=== PATIENT | male | born 1965 | race Caucasian/White ===

== ENCOUNTER → 2023-06-25 09:59 | Outpatient (BNVA) | payer MEDICARE, SELFPAY | PROVIDERS: PCP Family Medicine; Visit Provider Family Medicine | DX: E34.9 Endocrine disorder, unspecified (principal); Z86.73 Personal history of transient ischemic attack (TIA), and cerebral infarction without residual deficits; R97.20 Elevated prostate specific antigen [PSA]; I63.9 Cerebral infarction, unspecified | CPT/HCPCS: 80053; 80061; 84153; 84403; 85025 ==

== ENCOUNTER 2023-12-28 20:00 | Outpatient (CLI) | payer MEDICARE, SELFPAY | END 2023-12-28 20:01 | disposition home or self-care (01) | LOC: SLEEP 23:18 | PROVIDERS: PCP Family Medicine; Visit Provider Family Medicine | DX: G47.33 Obstructive sleep apnea (adult) (pediatric) (principal) | CPT/HCPCS: 95811 ==

== ENCOUNTER → 2024-01-19 12:43 | Outpatient (BNVA) | payer SELFPAY | PROVIDERS: PCP Family Medicine; Visit Provider Family Medicine | DX: E34.9 Endocrine disorder, unspecified (principal) | CPT/HCPCS: 80053; 80061; 84403 ==

== ENCOUNTER 2024-03-19 08:40 | Emergency (ER) | payer MEDICARE, SELFPAY ==
[2024-03-19 09:03] VITALS: BP 138/81; PULSE 79; RESP 18; TEMP 36.7; O2SAT 95
--- NOTE | 2024-03-19 10:11 | W.ED.WOUNDLC ---
HPI - Wound/Laceration General: Chief Complaint: Wound/Laceration Stated Complaint: sliced finger open Time Seen by Provider: 03/19/24 08:44 History of Present Illness: 58-year-old male was feel dressing and deer and cut his right index finger across the pad of the finger distally. No other injuries unsure of his last tetanus shot. Related Data Home Medications Medication Instructions Recorded Confirmed omeprazole 40 mg capsule,delayed 40 mg PO DAILY 04/30/23 03/19/24 release acetaminophen 500 mg tablet 1,000 mg PO Q6H PRN Pain 03/19/24 03/19/24 [id number] 32 mg-folic acid 1 See Rx Instructions .Route .COMPLEX 03/19/24 03/19/24 mg-dha 315 mg-Lactobac casei capsule (Multi Pro) Previous Rx's Medication Instructions Recorded testosterone cypionate 200 mg/mL 300 mg (1.5 mL) SUBCUT .Q 14 Days 01/14/24 intramuscular oil #4 mL Bipap machine and mask 01/23 #1 ea 01/19/24 apixaban 5 mg tablet (Eliquis) 5 mg PO BID #60 tabs 01/19/24 montelukast 10 mg tablet 10 mg PO DAILY #30 tabs 01/19/24 (Singulair) tamsulosin 0.4 mg capsule 0.4 mg PO DAILY #30 caps 01/19/24 mirtazapine 30 mg tablet 30 mg PO DAILY #30 tabs 02/10/24 sertraline 100 mg tablet (Zoloft) 100 mg PO DAILY #30 tabs 02/10/24 Allergies Allergy/AdvReac Type Severity Reaction Status Date / Time No Known Allergies Allergy Verified 02/10/24 09:51 [facility] ED PFSH: Medical History Psychiatric care SHRUTI on CPAP Chronic back pain History of embolic stroke Social History Smoking and tobacco/nicotine status: current every day tobacco/nicotine user Physical Exam Const: COMMON NORMALS: no acute distress GENERAL APPEARANCE: cooperative and comfortable ORIENTATION/CONSCIOUSNESS: Yes awake, Yes oriented to person, Yes oriented to place and Yes oriented to time HENMT: COMMON NORMALS: normocephalic, atraumatic and hearing grossly normal bilaterally HEAD & SCALP: normocephalic and atraumatic Extremity: COMMON NORMALS: normal to inspection, capillary refill normal, no clubbing, cyanosis or edema, no calf tenderness and no pedal edema OTHER: Right index finger 3 cm laceration full-thickness skin does not affect any deep structures. Patient can flex and extend against resistance without difficulty Neuro: SENSORIUM/ORIENTATION: Yes oriented to person, Yes oriented to place and Yes oriented to time Skin: COMMON NORMALS: no rashes or lesions noted GENERAL SKIN EXAM: no rashes or lesions noted Procedures Laceration Laceration 1: Site: hand (Second finger) Side (If applicable): right Size (cm): 3 Description: linear Depth: simple, single layer Pre-repair: wound explored, irrigated extensively and deep structures intact Skin layer closed with: other (Prolene) Size (cm): 5-0 Number of sutures: 1 Technique: running Nerve Block Nerve Block 1: Time out performed: Yes Local Anesthetic: lidocaine 1% Amount of anesthesia used (mL): 4 Side: right Nerve Blocks: digital (Second finger) Procedure Successful: Yes Patient Tolerated Procedure: well Complications: none Course Vital Signs: Vital signs: Vital Signs Temperature 98.1 F 03/19/24 09:03 Pulse Rate 77 03/19/24 10:54 Respiratory Rate 18 03/19/24 09:03 Blood Pressure 136/76 03/19/24 10:54 Pulse Oximetry 95 03/19/24 10:54 Oxygen Delivery Me thod Room Air 03/19/24 09:03 MDM - Wound/Laceration Medical Decision Making Wound closed with running suture. Wound care instructions given apply topical antibiotic ointment daily sutures out in 10 days follow-up with primary care. Tetanus updated No radiology studies performed this visit Discharge Plan Discharge Patient Disposition: Home Clinical Impression: Laceration Condition: Stable Prescriptions: No Action tamsulosin 0.4 mg capsule 0.4 mg PO DAILY Qty: 30 11RF montelukast [Singulair] 10 mg tablet 10 mg PO DAILY Qty: 30 11RF Eliquis 5 mg tablet 5 mg PO BID Qty: 60 11RF (DME) Bipap machine and mask 01/23 See Rx Instructions .Route .MEDSUPPLY Qty: 1 0RF Rx Instructions: supplies as needed omeprazole 40 mg capsule,delayed release(DR/EC) 40 mg PO DAILY sertraline [Zoloft] 100 mg tablet 100 mg PO DAILY Qty: 30 11RF mirtazapine 30 mg tablet 30 mg PO DAILY Qty: 30 11RF testosterone cypionate 200 mg/mL oil 300 mg SUBCUT .Q 14 Days Qty: 4 5RF acetaminophen [Paracetamol] 500 mg Tablet 1,000 mg PO Q6H PRN (Reason: Pain) Multi Pro 32 mg iron-1 mg -315 mg Capsule See Rx Instructions .ROUTE .COMPLEX Rx Instructions: Apply 1 patch daily Discharge Orders: Discharge ED (Routine); Ordered 03/19/24 Ordered By: Master Murphy Referrals: Yossi Cartwright MD [Primary Care Provider] - Discharge Diet: Usual diet Discharge Activity: Resume usual activity Patient Instructions: Finger Laceration (ED), Opioid Safety, Pain Management Activity Restrictions/Additional Instructions: Thank you for choosing [facility] for your healthcare needs today. It is very important that you follow up as instructed or that you return to the Emergency Department should you have concerns or if your condition changes or worsens in any way. You were seen in the emergency room with a laceration to your right index finger. This was closed with sutures. These should be removed by your primary care doctor in approximately 10 days. Apply [id number] topical antibiotic ointment to the wound 1-2 times daily. If there is any signs of infection return to the emergency room or see your primary care doctor. 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
[2024-03-19 10:54] VITALS: BP 136/76; PULSE 77; O2SAT 95
[2024-03-19] MEDS: tetanus-dipt-pertussis 0.5 mL SDV IM (11:04)
[2024-03-19] MEDS: bacitracin ointment Pkt 1 EACH TOPICAL (11:10)
== END 2024-03-19 11:15 | disposition home or self-care (01) ==
PROVIDERS: Emergency Provider Family Medicine; PCP Family Medicine
DX: S61.210A Laceration without foreign body of right index finger without damage to nail, initial encounter (principal); Z79.01 Long term (current) use of anticoagulants; W26.0XXA Contact with knife, initial encounter
CPT/HCPCS: 12002; 90471; 90715; 99283

== ENCOUNTER → 2024-07-19 10:27 | Outpatient (BNVA) | payer MEDICARE, SELFPAY | PROVIDERS: PCP Family Medicine; Visit Provider Family Medicine | DX: R61 Generalized hyperhidrosis (principal); E34.9 Endocrine disorder, unspecified; N40.0 Benign prostatic hyperplasia without lower urinary tract symptoms | CPT/HCPCS: 80053; 80061; 84153; 84403; 84443; 85025 ==

== ENCOUNTER → 2024-08-03 09:15 | Outpatient (BNVA) | payer MEDICARE, SELFPAY | PROVIDERS: PCP Family Medicine; Visit Provider Family Medicine | DX: R10.30 Lower abdominal pain, unspecified (principal) | CPT/HCPCS: 81000 ==

== ENCOUNTER → 2024-08-12 10:59 | Outpatient (BNVA) | payer MEDICARE, SELFPAY | PROVIDERS: PCP Family Medicine; Visit Provider Emergency Medicine | DX: M25.431 Effusion, right wrist (principal) | CPT/HCPCS: 73110 ==

== ENCOUNTER → 2024-08-24 11:55 | Outpatient (BNVA) | payer MEDICARE, SELFPAY | PROVIDERS: PCP Family Medicine; Visit Provider Internal Medicine Cardiovascular Disease | DX: Q21.12 Patent foramen ovale (principal); R07.9 Chest pain, unspecified; I65.23 Occlusion and stenosis of bilateral carotid arteries | CPT/HCPCS: 93005 ==

== ENCOUNTER 2024-08-24 12:57 | Outpatient (CLI) | payer MEDICARE, SELFPAY | END 2024-08-24 12:58 | disposition home or self-care (01) | LOC: RAD 08-29 16:06 | PROVIDERS: PCP Family Medicine; Visit Provider Internal Medicine Cardiovascular Disease | DX: Q21.12 Patent foramen ovale (principal); Z86.73 Personal history of transient ischemic attack (TIA), and cerebral infarction without residual deficits; F43.12 Post-traumatic stress disorder, chronic; R55 Syncope and collapse; Z87.891 Personal history of nicotine dependence | CPT/HCPCS: 99204 ==

== ENCOUNTER → 2024-08-30 12:48 | Outpatient (BNVA) | payer MEDICARE, SELFPAY | PROVIDERS: PCP Family Medicine; Visit Provider Internal Medicine Cardiovascular Disease | DX: R55 Syncope and collapse (principal); I49.8 Other specified cardiac arrhythmias; I49.3 Ventricular premature depolarization; I49.1 Atrial premature depolarization; R00.0 Tachycardia, unspecified | CPT/HCPCS: 93270 ==

== ENCOUNTER 2024-09-11 15:58 | Inpatient (IN) | payer MEDICARE, SELFPAY ==
[2024-09-11] VITALS (14 sets, daily range): BP systolic 122–142; BP diastolic 68–96; PULSE 58–74; RESP 12–19; TEMP 36.5–37; O2SAT 94–97; BMI 26.7; BMI 27.6
--- NOTE | 2024-09-11 16:04 | ECG_ITS ---
[facility] Date: 2024-09-11 Pat Name: Tonio Valderrama Department: Room: Gender: Male Certified Detention Deputy: : 1965 Requested By: Jennifer Araiza Order Number: [id number] Reading MD: LUCY HULL Measurements Intervals [place] Rate: 65 P: 62 WI: 180 QRS: 70 QRSD: 92 T: 61 QT: 383 QTc: 401 Interpretive Statements SINUS RHYTHM Compared to ECG 08/24/2024 12:00:34 No significant changes Electronically Signed On 09-12-2024 19:07:44 CDT by LUCY HULL [email or web address]
--- NOTE | 2024-09-11 16:11 | PC.NURSE ---
PROVIDER NOTIFIED OF STROKE LIKE SYMPTOMS AND LAST KNOWN WELL AND ASKED IF STROKE ALERT SHOULD BE ACTIVATED. VERBAL ORDERS NOT TO ACTIVATE STROKE ALERT AT THIS TIME.
[2024-09-11 16:14] LABS: Glucose Point of Care 110 mg/dL (70-110)
--- NOTE | 2024-09-11 16:27 | CTR_ITS ---
PROCEDURE INFORMATION: Exam: CT Head Without Contrast Exam date and time: 09/11/2024 4:54 PM Age: 58 years old Clinical indication: Numbness / parasthesia; Right; Additional info: Intermittent right sided weakness TECHNIQUE: Imaging protocol: Computed tomography of the head without contrast. Radiation optimization: All CT scans at this facility use at least one of these dose optimization techniques: automated exposure control; mA and/or kV adjustment per patient size (includes targeted exams where dose is matched to clinical indication); or iterative reconstruction. COMPARISON: No relevant prior studies available. RADIATION DOSE METRICS: Total DLP (mGy-cm): 1056.78 FINDINGS: Brain: Normal. No hemorrhage. Unremarkable white matter. No mass effect. Cerebral ventricles: No ventriculomegaly. Paranasal sinuses: Visualized sinuses are unremarkable. No fluid levels. Mastoid air cells: Visualized mastoid air cells are well aerated. Bones: Unremarkable. No acute fracture. Soft tissues: Unremarkable. CT/CT head wo con* [id number] IMPRESSION: No acute intracranial abnormality.
[2024-09-11 16:48] LABS: Basophils # 0.1 10^3/uL (0.0-0.1); Eosinophils # 0.2 10^3/uL (0.0-0.8); Eosinophils % 3.5 %; Hematocrit 46.9 % (37-53); Lymphocytes # 1.4 10^3/uL (0.8-4.8); Lymphocytes % 27.6 %; Mean Corpuscular HGB Conc 32.8 g/dL (30-55); Mean Corpuscular Volume 94.4 fl (82-101); Mean Platelet Volume 9.7 fL (7.4-10.4); Monocytes # 0.5 10^3/uL (0.2-0.9); Monocytes % 9.2 %; Neutrophils # 2.86 10^3/uL (1.8-7.7); Neutrophils % 58.5 %; Nucleated Red Blood Cells % 0 %; Platelet Count 219 10^3/cmm (157-399); Red Blood Count 4.97 10^6/uL (3.85-5.65); Red Cell Distribution Width 13.1 % (12.1-15.1); White Blood Count 4.89 10^3/uL (3.29-11.43)
[2024-09-11 17:07] LABS: Alanine Aminotransferase 25 U/L (0-41); Albumin Level 4.4 g/dL (3.5-5.2); Alkaline Phosphatase 69 U/L (40-130); Anion Gap 16.2 (5-19); Aspartate Amino Transferase 18 U/L (0-40); Blood Urea Nitrogen 14 mg/dL (8-23); Calcium 9.3 mg/dL (8.5-10.5); Carbon Dioxide 24 mmol/L (22-29); Chloride 105 mmol/L (98-107); Creatinine Clr Calc Pharmacy 88.9067; Globulin 2.7 g/dL (1.3-4.6); Glomerular Filtration Rate 76.2 mL/min (90-130); Glucose 104 mg/dL (65-115); Osmolality Calculated 293 mOsm/kg (285-295); Phosphorus 3.4 mg/dL (2.5-4.5); Potassium 4.2 mmol/L (3.5-5.1); Sodium 141 mmol/L (136-145); Total Bilirubin 0.7 mg/dL (0.15-1.2); Total Protein 7.1 g/dL (6.6-8.7)
--- NOTE | 2024-09-11 18:49 | CTR_ITS ---
PROCEDURE INFORMATION: Exam: CTA Head With Contrast, Arteriography Exam date and time: 09/11/2024 6:59 PM Age: 58 years old Clinical indication: C/O RT lower ext weakness/numbness. History of prior TIA and CVA. ; Additional info: Intermittent right leg weakness TECHNIQUE: Imaging protocol: Computed tomographic angiography of the head with contrast. Exam focused on the arteries. 3D rendering (Not supervised by radiologist): MIP and/or 3D reconstructed images were created by the technologist. Radiation optimization: All CT scans at this facility use at least one of these dose optimization techniques: automated exposure control; mA and/or kV adjustment per patient size (includes targeted exams where dose is matched to clinical indication); or iterative reconstruction. Contrast material: OMNI 350; Contrast volume: 100 ml; Contrast route: INTRAVENOUS (IV); COMPARISON: CT head wo con* [id number] 09/11/2024 4:54 PM RADIATION DOSE METRICS: Total DLP (mGy-cm): 449.62 FINDINGS: ANTERIOR CIRCULATION: Right internal carotid artery: Intracranial segment is patent with no significant stenosis. No aneurysm. Right middle cerebral artery: No occlusion or significant stenosis. No aneurysm. Right anterior cerebral artery: No occlusion or significant stenosis. No aneurysm. Left internal carotid artery: Intracranial segment is patent with no significant stenosis. No aneurysm. Left middle cerebral artery: No occlusion or significant stenosis. No aneurysm. Left anterior cerebral artery: No occlusion or significant stenosis. No aneurysm. POSTERIOR CIRCULATION: Right vertebral artery: No occlusion or significant stenosis. No aneurysm. Left vertebral artery: No occlusion or significant stenosis. No aneurysm. Basilar artery: No occlusion or significant stenosis. No aneurysm. Right posterior cerebral artery: No occlusion or significant stenosis. No aneurysm. Left posterior cerebral artery: No occlusion or significant stenosis. No aneurysm. Brain: No definite mass, mass effect, or midline shift. Cerebral ventricles: No ventriculomegaly. Bones/joints: Unremarkable. No acute fracture. Soft tissues: Unremarkable. PROCEDURE INFORMATION: Exam: CTA Neck With Contrast Exam date and time: 09/11/2024 6:59 PM Age: 58 years old Clinical indication: C/O RT lower ext weakness/numbness. History of prior TIA and CVA. ; Additional info: Intermittent right leg weakness TECHNIQUE: Imaging protocol: Computed tomographic angiography of the neck with contrast. Exam focused on the cervical segments of the vasculature. 3D rendering (Not supervised by radiologist): MIP and/or 3D reconstructed images were created by the technologist. Radiation optimization: All CT scans at this facility use at least one of these dose optimization techniques: automated exposure control; mA and/or kV adjustment per patient size (includes targeted exams where dose is matched to clinical indication); or iterative reconstruction. Contrast material: OMNI 350; Contrast volume: 100 ml; Contrast route: INTRAVENOUS (IV); COMPARISON: CT head wo con* [id number] 09/11/2024 4:54 PM RADIATION DOSE METRICS: Total DLP (mGy-cm): 449.62 FINDINGS: Right common carotid artery: No stenosis. No dissection or occlusion. Right internal carotid artery: No stenosis of the extracranial segment. No dissection or occlusion. Right external carotid artery: No occlusion or stenosis of the origin. Left common carotid artery: No stenosis. No dissection or occlusion. Left internal carotid artery: No stenosis of the extracranial segment. No dissection or occlusion. Left external carotid artery: No occlusion or stenosis of the origin. Right vertebral artery: No stenosis. No dissection or occlusion. Left vertebral artery: No stenosis. No dissection or occlusion. Soft tissues: Normal. No significant soft tissue swelling. Bones/joints: No acute fracture. CT/CT angio headneck* [id number] IMPRESSION: No large vessel stenosis or occlusion. IMPRESSION: No stenosis or occlusion. REFERENCES: NASCET CRITERIA. The degree of stenosis in the cervical segment of the internal carotid artery is based on NASCET criteria. Normal is no stenosis. Mild is less than 50% stenosis. Moderate is 50-69% stenosis. Severe is 70% to 99% stenosis. Total occlusion is no detectable patent lumen.
[2024-09-11] MEDS: iohexol 350 mg/mL 500 mL Btl (per mL) IV (19:02)
--- NOTE | 2024-09-11 19:46 | W.ED.NEUROSD ---
HPI - Neuro Symptoms/Deficit General: Chief Complaint: Neuro Symptoms/Deficit Stated Complaint: R side weakness Time Seen by Provider: 09/11/24 16:07 History of Present Illness: 58-year-old male presents with acute onset right-sided weakness and ataxia. Symptoms began yesterday afternoon and have progressively worsened. Initially could walk 10-15 steps before symptoms occurred, but today limited to 3-4 steps before experiencing right-sided collapse. Patient denies dizziness or lightheadedness with episodes. Reports right hip discomfort which may be secondary to body twisting during episodes. 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 Patient has significant stroke history with one completed stroke and four TIAs, most recent stroke in April 2022 which also affected right side and required walker use for 5 months. 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 No speech difficulties, visual changes, or new swallowing issues (chronic dysphagia noted). Related Data Home Medications ?Medication ?Instructions ?Recorded ?Confirmed omeprazole 40 mg capsule,delayed 40 mg PO DAILY 04/30/23 08/12/24 release acetaminophen 500 mg tablet 1,000 mg PO Q6H PRN Pain 03/19/24 08/12/24 [id number] 32 mg-folic acid 1 See Rx Instructions .Route .COMPLEX 03/19/24 08/12/24 mg-dha 315 mg-Lactobac casei capsule (Multi Pro) Previous Rx's ?Medication ?Instructions ?Recorded Bipap machine and mask 01/23 #1 ea 01/19/24 apixaban 5 mg tablet (Eliquis) 5 mg PO BID #60 tabs 01/19/24 montelukast 10 mg tablet 10 mg PO DAILY #30 tabs 01/19/24 (Singulair) tamsulosin 0.4 mg capsule 0.4 mg PO DAILY #30 caps 01/19/24 sertraline 100 mg tablet (Zoloft) 100 mg PO DAILY #30 tabs 02/10/24 trazodone 100 mg tablet 300 mg (3 x 100 mg) PO .HS PRN 07/15/24 insomnia #90 tabs pantoprazole 40 mg tablet,delayed 40 mg PO DAILY #30 tabs 07/19/24 release (Protonix) sulfamethoxazole 800 1 tab PO BID #20 tabs 08/03/24 mg-trimethoprim 160 mg tablet (Bactrim DS) prednisone 20 mg tablet 60 mg (3 x 20 mg) PO DAILY 5 days 08/12/24 #15 tabs sulfamethoxazole 800 2 tab PO BID 10 days #40 tabs 08/12/24 mg-trimethoprim 160 mg tablet (Bactrim DS) testosterone cypionate 200 mg/mL 300 mg (1.5 mL) SUBCUT .Q 14 Days 08/19/24 intramuscular oil #4 mL Allergies Allergy/AdvReac Type Severity Reaction Status Date / Time No Known Allergies Allergy Verified 08/24/24 10:48 PFSH ED PFSH: Medical History SHRUTI treated with BiPAP ASD (atrial septal defect) Psychiatric care Chronic back pain History of embolic stroke Social History Smoking and tobacco/nicotine status: former use of tobacco/nicotine Physical Exam Const: COMMON NORMALS: no acute distress, average body habitus, alert and well nourished GENERAL APPEARANCE: cooperative ORIENTATION/CONSCIOUSNESS: Yes awake HENMT: COMMON NORMALS: normocephalic and atraumatic HEAD & SCALP: normocephalic and atraumatic Eye: COMMON NORMALS: conjunctivae normal CONJUNCTIVA: Yes conjunctivae normal Neck/C-Spine: GENERAL: Yes normal visual inspection Resp: COMMON NORMALS: normal respiratory effort, No retractions and No use of accessory muscles Cardio: COMMON NORMALS: regular rhythm and Peripheral pulses 2+ throughout RHYTHM: regular rhythm PERIPHERAL PULSES: Peripheral pulses 2+ throughout GI: COMMON NORMALS: Soft to palpation and non-tender PALPATION: Yes Soft to palpation Extremity: COMMON NORMALS: full ROM and no pedal edema Neuro: COMMON NORMALS: no focal motor deficits SENSORIUM/ORIENTATION: Yes alert Skin: COMMON NORMALS: no rashes or lesions noted GENERAL SKIN EXAM: no rashes or lesions noted Course Vital Signs: Vital signs: Vital Signs Temperature 97.7 F 09/11/24 16:04 Pulse Rate 66 09/11/24 18:30 Respiratory Rate 15 09/11/24 18:30 Blood Pressure 136/85 09/11/24 18:30 Pulse Oximetry 95 09/11/24 18:30 Oxygen Delivery Me thod Room Air 09/11/24 16:04 MDM - Neuro Symptoms/Deficit Medical Decision Making ROS: Constitutional: Denies fever, chills HEENT: Denies double vision, visual changes Neurological: Reports right-sided weakness, denies speech problems Cardiovascular: Reports occasional lightheadedness with standing GI: Reports chronic dysphagia All other systems reviewed and negative MEDICATIONS AND ALLERGIES: Medications: - Eliquis (since 05/2015) - Zoloft (for PTSD) - Trazodone (for sleep) Allergies: None reported PAST HISTORICAL DATA: PMH: - Stroke (April 2022) - Multiple TIAs (total of 4) - PFO (Patent [place]) - 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 Mucous membranes moist Neck: Supple Cardiovascular: Regular rate and rhythm Respiratory: No increased work of breathing Neurological: - NIH Stroke Scale: 0 - No focal weakness of upper/lower extremities on formal testing - No drift noted - Facial smile symmetric - Raises forehead symmetrically - Speech fluent - Significant ataxia with ambulation after few steps Gait: Unable to ambulate more than a few feet without significant ataxia and unsteadiness INITIAL IMPRESSION AND PLAN: Given history and presentation, primary working diagnosis is possible acute stroke vs TIA. Additional considerations include conversion disorder, posterior circulation event, or space-occupying lesion. Plan: 1. CTA head and neck 2. CBC, CMP 3. EKG 4. Admission to hospital for further workup and monitoring TEST INTERPRETATIONS: CBC: Unremarkable CMP: Unremarkable EKG: Sinus rhythm at 65 bpm, normal axis, no ischemic ST changes CTA head and neck: Performed, results pending at time of note completion PROCEDURES: None performed CONSIDERED BUT NOT PERFORMED: None documented FINAL IMPRESSION: Based on all the above, my clinical impression is most compatible with acute neurological event, likely stroke vs TIA, particularly concerning given history of prior strokes and current anticoagulation. Rationale for admission: Patient requires admission due to acute progressive neurological symptoms, particularly concerning given history of multiple prior strokes. Despite being on appropriate anticoagulation, patient is experiencing worsening right-sided symptoms and significant gait instability, requiring further evaluation and monitoring. Outpatient management would not be appropriate given the acuity and progression of symptoms. RISK STRATIFICATION AND CLINICAL DECISION RULES APPLIED: NIH Stroke Scale score: 0 - Despite zero score on formal testing, patient demonstrates significant functional impairment with ambulation requiring further inpatient evaluation CASE SUMMARY: 58-year-old male with history of PFO and multiple strokes/TIAs presents with acute onset progressive right-sided weakness and ataxia for past 24 hours. Despite being on Eliquis, symptoms have significantly worsened today with inability to ambulate more than few steps. Initial workup including labs and EKG unremarkable, CTA performed. Given progressive symptoms and concerning history, patient admitted for further evaluation and management. Lab Data I reviewed the patient's lab results. 09/11/24 16:13 09/11/24 16:[address] 09/11/24 16:27 IMPRESSION: No acute intracranial abnormality. Head/Neck CTA 09/11/24 18:49 IMPRESSION: No large vessel stenosis or occlusion. IMPRESSION: No stenosis or occlusion. REFERENCES: NASCET CRITERIA. The degree of stenosis in the cervical segment of the internal carotid artery is based on NASCET criteria. Normal is no stenosis. Mild is less than 50% stenosis. Moderate is 50-69% stenosis. Severe is 70% to 99% stenosis. Total occlusion is no detectable patent lumen. Laboratory Results WBC 4.89 10^3/uL (3.29-11.43) 09/11/24 16:13 RBC 4.97 10^6/uL (3.85-5.65) 09/11/24 16:13 Hgb 15.40 g/dL (11.27-16.99) 09/11/24 16:13 Hct 46.9 % (37-53) 09/11/24 16:13 MCV 94.4 fl (82-101) 09/11/24 16:13 MCH 31.0 pg (27-33) 09/11/24 16:13 MCHC 32.8 g/dL (30-55) 09/11/24 16:13 RDW 13.1 % (12.1-15.1) 09/11/24 16:13 Plt Count 219 10^3/cmm (157-399) 09/11/24 16:13 MPV 9.7 fL (7.4-10.4) 09/11/24 16:13 Neut % (Auto) 58.5 % 09/11/24 16:13 Lymph % (Auto) 27.6 % 09/11/24 16:13 [place] % (Auto) 9.2 % 09/11/24 16:13 Eos % (Auto) 3.5 % 09/11/24 16:13 Baso % (Auto) 1.0 % 09/11/24 16:13 Neut # (Auto) 2.86 10^3/uL (1.8-7.7) 09/11/24 16:13 Lymph # (Auto) 1.4 10^3/uL (0.8-4.8) 09/11/24 16:13 [place] # (Auto) 0.5 10^3/uL (0.2-0.9) 09/11/24 16:13 Eos # (Auto) 0.2 10^3/uL (0.0-0.8) 09/11/24 16:13 Baso # (Auto) 0.1 10^3/uL (0.0-0.1) 09/11/24 16:13 Nucleated RBC % (auto) 0 % 09/11/24 16:13 Nucleated RBCs # 0.0 /100WBC 09/11/24 16:13 Sodium 141 mmol/L (136-145) 09/11/24 16:13 Potassium 4.2 mmol/L (3.5-5.1) 09/11/24 16:13 Chloride 105 mmol/L (98-107) 09/11/24 16:13 Carbon Dioxide 24 mmol/L (22-29) 09/11/24 16:13 Anion Gap 16.2 (5-19) 09/11/24 16:13 BUN 14 mg/dL (8-23) 09/11/24 16:13 Creatinine 1.0 mg/dL (0.7-1.2) 09/11/24 16:13 GFR Calculation 76.2 mL/min (90-130) L 09/11/24 16:13 Glucose 104 mg/dL (65-115) 09/11/24 16:13 POC Glucose 110 mg/dL (70-110) 09/11/24 16:07 Calculated Osmolality 293 mOsm/kg (285-295) 09/11/24 16:13 Calcium 9.3 mg/dL (8.5-10.5) 09/11/24 16:13 Phosphorus 3.4 mg/dL (2.5-4.5) 09/11/24 16:13 Magnesium 2.0 mg/dL (1.7-2.3) 09/11/24 16:13 Total Bilirubin 0.7 mg/dL (0.15-1.2) 09/11/24 16:13 AST 18 U/L (0-40) 09/11/24 16:13 ALT 25 U/L (0-41) 09/11/24 16:13 Alkaline Phosphatase 69 U/L (40-130) 09/11/24 16:13 Total Protein 7.1 g/dL (6.6-8.7) 09/11/24 16:13 Albumin 4.4 g/dL (3.5-5.2) 09/11/24 16:13 Globulin 2.7 g/dL (1.3-4.6) 09/11/24 16:13 All radiology interpretation(s) finalized by discharge Discharge Plan Discharge Patient Disposition: Placed in Observation Clinical Impression: Ataxia, Right leg weakness 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
--- NOTE | 2024-09-11 20:14 | W.ED.NEUROSD ---
HPI - Neuro Symptoms/Deficit General: Chief Complaint: Neuro Symptoms/Deficit Stated Complaint: R side weakness Time Seen by Provider: 09/11/24 16:07 Related Data Home Medications ?Medication ?Instructions ?Recorded ?Confirmed omeprazole 40 mg capsule,delayed 40 mg PO DAILY 04/30/23 08/12/24 release acetaminophen 500 mg tablet 1,000 mg PO Q6H PRN Pain 03/19/24 08/12/24 [id number] 32 mg-folic acid 1 See Rx Instructions .Route .COMPLEX 03/19/24 08/12/24 mg-dha 315 mg-Lactobac casei capsule (Multi Pro) Previous Rx's ?Medication ?Instructions ?Recorded Bipap machine and mask 01/23 #1 ea 01/19/24 apixaban 5 mg tablet (Eliquis) 5 mg PO BID #60 tabs 01/19/24 montelukast 10 mg tablet 10 mg PO DAILY #30 tabs 01/19/24 (Singulair) tamsulosin 0.4 mg capsule 0.4 mg PO DAILY #30 caps 01/19/24 sertraline 100 mg tablet (Zoloft) 100 mg PO DAILY #30 tabs 02/10/24 trazodone 100 mg tablet 300 mg (3 x 100 mg) PO .HS PRN 07/15/24 insomnia #90 tabs pantoprazole 40 mg tablet,delayed 40 mg PO DAILY #30 tabs 07/19/24 release (Protonix) sulfamethoxazole 800 1 tab PO BID #20 tabs 08/03/24 mg-trimethoprim 160 mg tablet (Bactrim DS) prednisone 20 mg tablet 60 mg (3 x 20 mg) PO DAILY 5 days 08/12/24 #15 tabs sulfamethoxazole 800 2 tab PO BID 10 days #40 tabs 08/12/24 mg-trimethoprim 160 mg tablet (Bactrim DS) testosterone cypionate 200 mg/mL 300 mg (1.5 mL) SUBCUT .Q 14 Days 08/19/24 intramuscular oil #4 mL Allergies Allergy/AdvReac Type Severity Reaction Status Date / Time No Known Allergies Allergy Verified 08/24/24 10:48 [facility] ED PFSH: Medical History SHRUTI treated with BiPAP ASD (atrial septal defect) Psychiatric care Chronic back pain History of embolic stroke Social History Smoking and tobacco/nicotine status: former use of tobacco/nicotine Course Vital Signs: Vital signs: Vital Signs Temperature 97.7 F 09/11/24 16:04 Pulse Rate 64 09/11/24 19:30 Respiratory Rate 18 09/11/24 19:30 Blood Pressure 127/83 09/11/24 19:30 Pulse Oximetry 97 09/11/24 19:30 Oxygen Delivery Me thod Room Air 09/11/24 16:04 MDM - Neuro Symptoms/Deficit Lab Data 09/11/24 16:13 09/11/24 16:[address] 09/11/24 16:27 IMPRESSION: No acute intracranial abnormality. Head/Neck CTA 09/11/24 18:49 IMPRESSION: No large vessel stenosis or occlusion. IMPRESSION: No stenosis or occlusion. REFERENCES: NASCET CRITERIA. The degree of stenosis in the cervical segment of the internal carotid artery is based on NASCET criteria. Normal is no stenosis. Mild is less than 50% stenosis. Moderate is 50-69% stenosis. Severe is 70% to 99% stenosis. Total occlusion is no detectable patent lumen. Laboratory Results WBC 4.89 10^3/uL (3.29-11.43) 09/11/24 16:13 RBC 4.97 10^6/uL (3.85-5.65) 09/11/24 16:13 Hgb 15.40 g/dL (11.27-16.99) 09/11/24 16:13 Hct 46.9 % (37-53) 09/11/24 16:13 MCV 94.4 fl (82-101) 09/11/24 16:13 MCH 31.0 pg (27-33) 09/11/24 16:13 MCHC 32.8 g/dL (30-55) 09/11/24 16:13 RDW 13.1 % (12.1-15.1) 09/11/24 16:13 Plt Count 219 10^3/cmm (157-399) 09/11/24 16:13 MPV 9.7 fL (7.4-10.4) 09/11/24 16:13 Neut % (Auto) 58.5 % 09/11/24 16:13 Lymph % (Auto) 27.6 % 09/11/24 16:13 Vermillion % (Auto) 9.2 % 09/11/24 16:13 Eos % (Auto) 3.5 % 09/11/24 16:13 Baso % (Auto) 1.0 % 09/11/24 16:13 Neut # (Auto) 2.86 10^3/uL (1.8-7.7) 09/11/24 16:13 Lymph # (Auto) 1.4 10^3/uL (0.8-4.8) 09/11/24 16:13 Vermillion # (Auto) 0.5 10^3/uL (0.2-0.9) 09/11/24 16:13 Eos # (Auto) 0.2 10^3/uL (0.0-0.8) 09/11/24 16:13 Baso # (Auto) 0.1 10^3/uL (0.0-0.1) 09/11/24 16:13 Nucleated RBC % (auto) 0 % 09/11/24 16:13 Nucleated RBCs # 0.0 /100WBC 09/11/24 16:13 Sodium 141 mmol/L (136-145) 09/11/24 16:13 Potassium 4.2 mmol/L (3.5-5.1) 09/11/24 16:13 Chloride 105 mmol/L (98-107) 09/11/24 16:13 Carbon Dioxide 24 mmol/L (22-29) 09/11/24 16:13 Anion Gap 16.2 (5-19) 09/11/24 16:13 BUN 14 mg/dL (8-23) 09/11/24 16:13 Creatinine 1.0 mg/dL (0.7-1.2) 09/11/24 16:13 GFR Calculation 76.2 mL/min (90-130) L 09/11/24 16:13 Glucose 104 mg/dL (65-115) 09/11/24 16:13 POC Glucose 110 mg/dL (70-110) 09/11/24 16:07 Calculated Osmolality 293 mOsm/kg (285-295) 09/11/24 16:13 Calcium 9.3 mg/dL (8.5-10.5) 09/11/24 16:13 Phosphorus 3.4 mg/dL (2.5-4.5) 09/11/24 16:13 Magnesium 2.0 mg/dL (1.7-2.3) 09/11/24 16:13 Total Bilirubin 0.7 mg/dL (0.15-1.2) 09/11/24 16:13 AST 18 U/L (0-40) 09/11/24 16:13 ALT 25 U/L (0-41) 09/11/24 16:13 Alkaline Phosphatase 69 U/L (40-130) 09/11/24 16:13 Total Protein 7.1 g/dL (6.6-8.7) 09/11/24 16:13 Albumin 4.4 g/dL (3.5-5.2) 09/11/24 16:13 Globulin 2.7 g/dL (1.3-4.6) 09/11/24 16:13 Discharge Plan Discharge Patient Disposition: Placed in Observation Clinical Impression: Ataxia, Right leg weakness Coding Level of Care Code 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
--- NOTE | 2024-09-11 22:34 | P.HP_ITS ---
Providers/Chief Complaint 2 Admitting Physician: Li Rich MD Primary Care Provider: Yossi Cartwright MD Chief Complaint: R side weakness History of Present Illness Tonio Valderrama is a 58 yo man w/ a embolic CVA in 2015, due to a a Patent Forament Ovale on 04/2015, complicated by a RUE and RLE weakness and , TIAs x 4 episodes, w/ the last TIA occurring in 04/2024 managed at [facility], who presented to the ED on 09/11/2024 w/ complaints of progressive R. arm tingling and weakness and progressive R. LE weakness. The patient noticed progressive R. LE weakness that began a week ago, but worsened by 09/10/2024. The patient states that he could walk 6-7steps before his R. leg would buckle and he loses his balance, but by Monday 09/11, he would walk 3 steps before his R. leg buckled and he would lose balance. He did not sustain any head trauma. He also noticed a tingling feeling starting from the R. side of his face that goes down his R. arm and forearm that began 2-3 days ago and had also progressively worsened. He states that he noticed that his b/l hands began intermittently shaking starting 2 months ago. He saw his new Sprinkler Fitter Helper, Dr. Liu, as a new patient, on 08/30/2024 for his PFO, who noticed his hands shaking and recommended that he see a Neurologist. Dr. Liu placed an outpatient cardiac monitoring on him for light headedness and syncope. He states that the shaking in his hands occurs intermittently and is random. He states that the shaking in his hands is not due to lack of sleep or coffee. It does shake when he attempts to reach for things. He endorses light headedness. He endorses light headedness such that he has to sit down. He endorses He denies syncope, stating that he has not passed out in 2 months. He endorses R. ear pain, which he attributes to allergies. He endorses night sweats for the last 2 months. He has travelled to [place], [place] ([place]), [place] in the last year. He complains of intermittent difficulty swallowing with solids, but denies odynophagia. He denies aural fullness, visual disturbances, f/c, He completed Bactrim for prostatitis and a R. hand infection for a month last week. In the ED, his vital signs showed blood pressures up to 142/[address] head was done that showed no acute intracranial abnormality. The neurologist on-call was consulted from the ED, and based on her recommendations, a CTA of the head and neck was done which was negative for any stenoses or occlusions. The patient was admitted for further management. #R. LE weakness plus #R. face & RUE tinglingling and mild weakness - Order MRI outpatient. Consulted Neurology - Ordered Swallow study for dysphagia - Ordered PT -F/u lipid panel andn TSH. #Night sweats x 2 months - ordered quantiferon TB test. Differ #SHRUTI on BiPAP #Anxiety/Depression, PTSD - On Zoloft #Insomnia - On Trazodone 300mg qhs. #Seasonal Allergic Rhinitis - resumed home medsd #BPH: Resumed home meds. Review of Systems 2 Const: Reports: change in weight (intentional weight loss. ) and night sweats; Denies: fever(s), chills or change in appetite Eyes: Denies: change in vision ENMT: Denies: odynophagia, ear or mastoid pain, nasal congestion or nasal obstruction Card: Reports: lightheadedness; Denies: chest pain, palpitations or syncope Resp: Denies: dyspnea, productive cough, non-productive cough or wheezing GI: Reports: diarrhea (chronic - watery); Denies: abdominal pain, nausea, vomiting, constipation, hematochezia or melena : Reports: urinary frequency, urinary urgency and other (nocturia); Denies: difficulty urinating, dysuria or hematuria Musc: Reports: other (no myalgias); Denies: joint pain Skin/Breast: Denies: rash or new lesions Neuro: Reports: headache(s); Denies: dizziness Psych: Reports: anxiety and depression; Denies: suicidal ideation or homicidal ideation Endo: Denies: cold intolerance or heat intolerance Jose A/Lymph: Reports: easy bruising and easy bleeding All/Imm: Denies: food intolerance Medications/Allergies Home Medications ?Medication ?Instructions ?Recorded ?Confirmed ?Last Taken ?Type Bipap machine and mask 10/6 #1 ea 01/19/24 09/12/24 Un known Rx apixaban 5 mg tablet (Eliquis) 5 mg PO BID #60 tabs 09/12/24 03/18/24 Rx montelukast 10 mg tablet 10 mg PO DAILY #30 tabs 10/0 05/1309/12/24 03/18/24 Rx (Singulair) tamsulosin 0.4 mg capsule 0.4 mg PO DAILY #30 caps 05/1309/12/24 09/11/24 Rx sertraline 100 mg tablet (Zoloft) 100 mg PO DAILY #30 tabs 02/10/24 09/12/24 09/11/24 Rx acetaminophen 500 mg tablet 1,000 mg PO Q6H PRN Pain 1 05/19/23 09/12/24 03/18/24 History [id number] 32 mg-folic acid 1 See Rx Instructions .R oute .COMPLEX 03/19/24 09/12/24 09/11/24 History mg-dha 315 mg-Lactobac casei capsule (Multi Pro) trazodone 100 mg tablet 300 mg (3 x 100 mg) PO .HS P RN 07/15/24 09/12/24 09/11/24 Rx insomnia #90 tabs pantoprazole 40 mg tablet,delayed 40 mg PO DAILY #30 t abs 07/19/24 09/12/24 09/11/24 Rx release (Protonix) testosterone cypionate 200 mg/mL 300 mg (1.5 mL) SUBCU T .Q 14 Days 08/19/24 09/12/24 09/05/24 Rx intramuscular oil #4 mL Allergies Allergy/AdvReac Type Severity Reaction Status Date / Time No Known Allergies Allergy Verified 08/24/24 10:48 PFSH Acute 2 PFSH: Medical History (Updated 09/12/24 @ 06:43 by Li Rich MD) Insomnia PTSD (post-traumatic stress disorder) GERD (gastroesophageal reflux disease) Allergic rhinitis PFO (patent foramen ovale) SHRUTI treated with BiPAP ASD (atrial septal defect) Psychiatric care Chronic back pain History of embolic stroke Surgical History (Updated 09/12/24 @ 06:45 by Li Rich MD) H/O gastric bypass In 04/2021 in [facility]. H/O shoulder surgery R. shoulder surgery due to bone spurs H/O wrist surgery due to R. wrist fracture at work. Surgery occurred around Jan or Feb 2016 Family History (Updated 09/12/24 @ 06:47 by Li Rich MD) Sister Brain tumor Brother Brain tumor Mother Heart disease Grandmother Heart disease Father Throat cancer Social History (Updated 09/12/24 @ 06:48 by Li Rich MD) Smoking and tobacco/nicotine status: former use of tobacco/nicotine Quit status (tobacco/nicotine): has quit using Year quit tobacco: 06/2024 Former quit date comment: Smoked pipes only for 2 years. Alcohol intake: current Alcohol intake frequency: holidays/special occasions only Substance/Drug Use: never Vitals/I&O/Wt Last Vital Signs Temp 97.7 F 09/11/24 16:04 Pulse 60 09/11/24 22:00 Resp 12 09/11/24 21:00 BP 124/89 09/11/24 22:00 Pulse Ox 96 09/11/24 22:00 O2 Del Method Room Air 09/11/24 16:04 Weight last 48 hrs Weight 87.09 kg Physical Exam 2 Narrative: Constitutional: GENERAL APPEARANCE: cooperative, comfortable; not combative, not disheveled, not ill appearing and not frail appearing HENT: HEAD & SCALP: normocephalic and atraumatic; NOSE: external nose not normal EXTERNAL EAR: no external ears normal MOUTH: Normal oral and palatal mucosa present THROAT: posterior oropharynx normal Eye: PERRL, EOMI, normal conjunctiva b/l Neck: normal visual inspection, trachea midline, No anterior neck swelling, No tracheal deviation, No tracheostomy present, no submandibular swelling, Thyroid normal , cervical ROM normal Lymph: no cervical, supraclavicular LAD Resp: no use of accessory muscles, CTAB, no w/r/r Cardio: RRR, no m/r/g, or clicks. 2+ radial and DP pulses. GI: normoactive bowel sounds, non-tender, non-distended, no guarding, no rigidity, no rebound tenderness, no hepatosplenomegaly. : Deferred Back/Pelvis: Deferred Extremity: No clubbing, No cyanosis and No edema Neuro: AO to person, place and time. CN normal except as noted. 5/5 motor strength present throughout bilateral. Normal motor muscle tone present throughout. No tremor noted. No motor abnormalities present. No motor fasciculations present. Sensation to light touch grossly intact. Subtle dysmetria noted. 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 arm tingling and weakness and progressive R. LE weakness. #R. LE weakness plus #R. face & RUE tinglingling and mild weakness - Order MRI outpatient. Consulted Neurology who will try to see hime today. - Ordered Swallow study for dysphagia - Ordered PT - Ordered ECHO w/ bubble study. - F/u lipid panel and TSH. #Hypogonadism: On testosterone injections. He is unable to tell me why he is on this. This may also increase his risk of stroke. #b/l intermittent hand tremors - possibly essential tremors - Defer to Neurology for eval. #Night sweats x 2 months - ordered quantiferon TB test. Differ to day hospitalist to order coccidiodes labs b/c I am not sure which to order. #SHRUTI on BiPAP: His will bring his machine. #Anxiety/Depression & PTSD - On Zoloft #Insomnia - On Trazodone 300mg qhs. #Seasonal Allergic Rhinitis - resumed home meds #BPH: Resumed home meds. #GERD: Resumed home meds. DVT ppx: defer to day hospitalist based on Neurology recs. PDMP PDMP Reviewed: Not Reviewed Attestations 2 Medical Necessity Statement*: The patient needs to be hospitalized for greater than 2 midnights for evaluation of right lower extremity weakness concerning for stroke. He also may need to be hospitalized for his night sweats for which QuantiFERON TB test has been ordered. Coding Level of Care Code 88308 High Time for a total of 80 minutes, includes reviewing past or interval history, examining/interviewing patient, placing orders, counseling patient/family/other support, updating patient/family/other support, discussing plan of care with staff, communicating with other healthcare providers, documenting encounter and coordinating care Other Coding Information Focused coding review requested Diagnoses PFO (patent foramen ovale) Q21.12 Ataxia R27.0 Right leg weakness R29.898
[2024-09-12] VITALS (8 sets, daily range): BP systolic 126–156; BP diastolic 71–81; PULSE 68–90; RESP 14–18; TEMP 36.4–37.1; O2SAT 93–98
[2024-09-12 07:18] LABS: Basophils % 0.7 %; Eosinophils # 0.2 10^3/uL (0.0-0.8); Eosinophils % 2.9 %; Lymphocytes # 1.4 10^3/uL (0.8-4.8); Mean Corpuscular HGB Conc 33.6 g/dL (30-55); Mean Corpuscular Hemoglobin 31.3 pg (27-33); Mean Corpuscular Volume 93.4 fl (82-101); Mean Platelet Volume 9.4 fL (7.4-10.4); Monocytes # 0.5 10^3/uL (0.2-0.9); Monocytes % 8.1 %; Neutrophils # 3.79 10^3/uL (1.8-7.7); Neutrophils % 64.1 %; Nucleated Red Blood Cells % 0 %; Platelet Count 214 10^3/cmm (157-399); Red Blood Count 4.82 10^6/uL (3.85-5.65); White Blood Count 5.91 10^3/uL (3.29-11.43)
[2024-09-12 07:26] LABS: INR 0.88 (0.8-1.2)
[2024-09-12 07:27] LABS: Partial Thromboplastin Time 28.7 SECONDS (23.9-36.7)
[2024-09-12 07:35] LABS: Alanine Aminotransferase 20 U/L (0-41); Alkaline Phosphatase 60 U/L (40-130); Anion Gap 13.9 (5-19); Aspartate Amino Transferase 15 U/L (0-40); Blood Urea Nitrogen 13 mg/dL (8-23); Calcium 9.1 mg/dL (8.5-10.5); Carbon Dioxide 25 mmol/L (22-29); Chloride 105 mmol/L (98-107); Creatinine Clr Calc Pharmacy 89.9147; Globulin 2.5 g/dL (1.3-4.6); Glomerular Filtration Rate 76.2 mL/min (90-130); Glucose 93 mg/dL (65-115); Magnesium 1.8 mg/dL (1.7-2.3); Osmolality Calculated 290 mOsm/kg (285-295); Phosphorus 2.1 mg/dL (2.5-4.5); Potassium 3.9 mmol/L (3.5-5.1); Sodium 140 mmol/L (136-145); Total Bilirubin 0.8 mg/dL (0.15-1.2); Total Protein 6.5 g/dL (6.6-8.7)
[2024-09-12] MEDS: pantoprazole DR 40 mg Tablet PO (08:51)
[2024-09-12] MEDS: montelukast sodium 10 mg Tablet PO (08:51)
--- NOTE | 2024-09-12 09:35 | USCV_ITS ---
DiegooskarangelaTonio Age: 58 Gender: M : 1965 Exam Date: 09/12/2024 16:19 Ordering Phys: Li Rich MD Technologist: Rayo Whitmore [place] [facility] [place] Indication: hx of PFO. concern for recurrent cva BP: 126 / 81 HR: 69 Rhythm: Sinus Technical Quality: MEASUREMENTS (Male / Female) Normal Values 2D ECHO LV Diastolic Diameter PLAX 5.3 cm 4.2 - 5.9 / 3.9 - 5.3 cm IVS Diastolic Thickness 1.0 cm 0.6 - 1.0 / 0.6 - 0.9 cm IVS Systolic Thickness 1.9 cm LVPW Diastolic Thickness 1.6 cm 0.6 - 1.0 / 0.6 - 0.9 cm LVPW Systolic Thickness 1.9 cm LVOT Diameter 2.0 cm LV Ejection Fraction 2D Teich 60.3 % LV Ejection Fraction MOD 4C 72.9 % LV Ejection Fraction MOD 2C 60.1 % LV Ejection Fraction 2C AL 60.6 % LA Diameter 3.3 cm RA Systolic Volume 4C AL 42.9 ml RA Systolic Volume 4C MOD 41.0 ml LA Sys Volume AL 39.2 cm cubed LA Sys Volume Index AL 18.4 cm cubed/m squared Aorta at Sinotubular Diameter 2.4 cm IVC Diameter 1.6 cm M-MODE LA Ao Ratio MM 1.2 AV Cusp Separation MM 1.9 cm DOPPLER AV Peak Velocity 118.0 cm/s LVOT Peak Velocity 98.0 cm/s AV Area Cont Eq vti 2.7 cm squared AV Area Cont Eq pk 2.7 cm squared MV Peak Velocity 100.0 cm/s MV Area PHT 5.5 cm squared Mitral E to A Ratio 0.7 TR Peak Velocity 318.0 cm/s TR Peak Gradient 40.4 mmHg TR Mean Velocity 237.0 cm/s TR Mean Gradient 24.3 mmHg TR Velocity Time Integral 96.2 cm PV Peak Velocity 161.3 cm/s RV Ejection Time 0.3 s FINDINGS Left Ventricle Normal left ventricular size, systolic function and wall thickness, with no regional wall motion abnormalities. Left ventricular ejection fraction is estimated at 60 %. Grade I/IV diastolic dysfunction (abnormal relaxation filling pattern), normal to mildly elevated filling pressures. Right Ventricle Normal right ventricular size. Positive bubble study suggestive of intracardiac intra-atrial shunt Right Atrium The right atrium is normal in size. Left Atrium The left atrium is normal in size. Mitral Valve Mildly thickened mitral valve. No mitral valve stenosis. Trace mitral valve regurgitation. Aortic Valve Mild aortic valve calcification. No aortic valve stenosis. No aortic valve regurgitation. No aortic valve regurgitation. Tricuspid Valve Structurally normal tricuspid valve without significant stenosis or regurgitation. Pulmonary artery systolic pressure is normal. Pulmonic Valve Structurally normal pulmonic valve without significant stenosis. There is no pulmonic regurgitation. Pericardium Normal pericardium without effusion. Aorta Normal ascending aorta dimension. IVC The inferior vena cava appears normal. CONCLUSIONS Normal left ventricular size, systolic function and wall thickness, with no regional wall motion abnormalities. Left ventricular ejection fraction is estimated at 60 %. Grade I/IV diastolic dysfunction (abnormal relaxation filling pattern), normal to mildly elevated filling pressures. Normal right ventricular size. Positive bubble study suggestive of intracardiac intra-atrial shunt There is no pericardial effusion. No significant valve abnormalities. Right atrial pressure is around 5 mm of mercury. Ming Lara MD (Electronically Signed) Final Date: 13 Sep 2024 08:20 S
[2024-09-12 10:04] LABS: Chol HDL Ratio 2.11 mg/dL (1.0-5.00); Cholesterol 188 mg/dL (0-200); HDL Cholesterol 89 mg/dL (60-100); LDL Cholesterol Calculated 91 mg/dL (50-129); LDL HDL Ratio 1.02 RATIO (0.00-3.22); Thyroid Stimulating Hormone 1.93 uIU/mL (0.27-4.20); Triglycerides 38 mg/dL (0-150)
--- NOTE | 2024-09-12 11:58 | PM.CONSULT ---
Providers/Reason For Consult Consulting Physician/Specialty*: Deepak Reason for Consult*: Probable acute stroke Requesting Physician: Dr. Sotelo Attending Physician: Sarai Castillo MD Primary Care Provider: Yossi Cartwright MD History of Present Illness History of Present Illness Tonio Valderrama is a 58 year old male. However Dr. Cartwright for severe obstructive sleep apnea, atrial septal defect and chronic anxiety. Reportedly he had a stroke in 2016 that was blamed on an atrial septal defect and he was started on Eliquis. He had some type of TIA in April and was seen at an outside hospital and told he should see a neurologist right away. He was sent to Dr. Liu by Dr. Cartwright for his atrial septal defect and he described to Dr. Liu that he has had 6 TIAs and at the last 1 he was admitted to [place] for right sided tingling and weakness. His last ANTHONY was in [facility] in 2015. He passes out every 3 months associated with orthostatic changes. Dr. Liu set the patient up for transesophageal echocardiogram, and event monitor and a carotid Doppler. The patient presented to the emergency department with right-sided weakness and ataxia with collapse of the right leg and pain in the right hip and weakness of the right hand that had been present for 24 hours. He was on Eliquis and so had multiple reasons not to be a candidate for thrombolytic therapy. The patient has been extremely anxious to be seen by neurology and was trying to get an appointment with me but we were booked out till December. The patient with a history of multiple TIAs and a prior stroke (2015 or 2016) presents with right leg weakness that began two days ago. Initially, the right leg started giving out, and by the following day, the patient could only take a few steps before the leg would give out. The patient also reports persistent tingling in the right arm. There is no report of recent falls or injuries. The patient is able to walk with a walker and has some right hip pain, possibly related to the leg giving out and twisting. The patient describes a history of back pain since childhood. There is also a history of episodes of generalized weakness, such as an event in April where the patient became weak all over, was dizzy, and required hospitalization for three days at [place] (sent there from [place]). The patient reports lightheadedness every time he stands up but denies current dizziness. No numbness in the feet is reported. 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 The patient is currently taking Eliquis, though occasionally misses a morning dose. No recent trauma or injury is reported. The patient denies numbness in the legs and feet. No mention of chest pain, shortness of breath, or palpitations. No mention of fever, chills, or other systemic symptoms. Review of Systems Const: Reports: other ( sleep apnea on CPAP); Denies: fever(s) or chills Eyes: Denies: change in vision Card: Reports: lightheadedness and syncope; Denies: chest pain, palpitations, irregular heart rhythm or dyspnea on exertion Resp: Denies: dyspnea GI: Denies: abdominal pain : Denies: flank pain Musc: Reports: back pain and extremity pain; Denies: neck pain Skin/Breast: Denies: rash Neuro: Reports: numbness in extremities (Right arm), weakness in extremities (Right leg), lack of coordination and other (longstanding tremor); Denies: headache(s) Medications/Allergies Home Medications ?Medication ?Instructions ?Recorded ?Confirmed ?Last Taken ?Type Bipap machine and mask 01/23 #1 ea 01/19/24 09/12/24 Unknown Rx apixaban 5 mg tablet (Eliquis) 5 mg PO BID #60 tabs 01/19/24 09/12/24 03/18/24 Rx montelukast 10 mg tablet 10 mg PO DAILY #30 tabs 01/19/24 09/12/24 03/18/24 Rx (Singulair) tamsulosin 0.4 mg capsule 0.4 mg PO DAILY #30 caps 01/19/24 09/12/24 09/11/24 Rx sertraline 100 mg tablet (Zoloft) 100 mg PO DAILY #30 tabs 02/10/24 09/12/24 09/11/24 Rx acetaminophen 500 mg tablet 1,000 mg PO Q6H PRN Pain 03/19/24 09/12/24 03/18/24 History [id number] 32 mg-folic acid 1 See Rx Instructions .Route .COMPLEX 03/19/24 09/12/24 09/11/24 History mg-dha 315 mg-Lactobac casei capsule (Multi Pro) trazodone 100 mg tablet 300 mg (3 x 100 mg) PO .HS PRN 07/15/24 09/12/24 09/11/24 Rx insomnia #90 tabs pantoprazole 40 mg tablet,delayed 40 mg PO DAILY #30 tabs 07/19/24 09/12/24 09/11/24 Rx release (Protonix) testosterone cypionate 200 mg/mL 300 mg (1.5 mL) SUBCUT .Q 14 Days 08/19/24 09/12/24 09/05/24 Rx intramuscular oil #4 mL Allergies Allergy/AdvReac Type Severity Reaction Status Date / Time No Known Allergies Allergy Verified 08/24/24 10:48 Current Medications Generic Name Dose Route Start Last Admin Trade Name Freq PRN Reason Stop Dose Admin Montelukast Sodium 10 mg 09/12/24 09:00 09/12/24 08:51 Montelukast Sodium 10 Mg Tablet PO 10 mg DAILY GABBIE Administration Pantoprazole Sodium 40 mg 09/12/24 06:45 09/12/24 08:[address] 40 Mg Tablet PO 40 mg QAM GABBIE Administration PFSH Acute PFSH: Medical History (Updated 09/12/24 @ 12:39 by Siobhan Cervantes MD) Insomnia PTSD (post-traumatic stress disorder) GERD (gastroesophageal reflux disease) Allergic rhinitis PFO (patent foramen ovale) SHRUTI treated with BiPAP ASD (atrial septal defect) Psychiatric care Chronic back pain History of embolic stroke Surgical History (Updated 09/12/24 @ 06:45 by Li Rich MD) H/O gastric bypass In 04/2021 in [facility]. H/O shoulder surgery R. shoulder surgery due to bone spurs H/O wrist surgery due to R. wrist fracture at work. Surgery occurred around Jan or Feb 2016 Family History (Updated 09/12/24 @ 06:47 by Li Rich MD) Sister Brain tumor Brother Brain tumor Mother Heart disease Grandmother Heart disease Father Throat cancer Social History (Updated 09/12/24 @ 06:48 by Li Rich MD) Smoking and tobacco/nicotine status: former use of tobacco/nicotine Quit status (tobacco/nicotine): has quit using Year quit tobacco: 06/2024 Former quit date comment: Smoked pipes only for 2 years. Alcohol intake: current Alcohol intake frequency: holidays/special occasions only Substance/Drug Use: never Vitals/I&O/Wt Last Vital Signs Temp 97.8 F 09/12/24 11:26 Pulse 68 09/12/24 11:26 Resp 17 09/12/24 11:26 BP 142/81 09/12/24 11:26 Pulse Ox 97 09/12/24 11:26 O2 Del Method Room Air 09/12/24 11:26 09/11/24 09/12/24 09/12/24 22:59 06:59 14:59 Intake Total 200 / 200 Balance 200 / 200 Weight last 48 hrs Weight 197 lb Weight 197 lb 11.2 oz Weight 192 lb Physical Exam Narrative: GENERAL: The patient was well-nourished with a healthy appearance and appropriately groomed. MENTAL STATUS: Orientation was full to 10 of 10 questions of orientation. Speech was fluent without word hesitation. No difficulty following a complex command. The affect was euthymic. He is of above average intelligence. CRANIAL NERVES: Visual acuity was intact to reading small print. Visual acuña were full to confrontation, direct and consensual. Extraocular movements were full without nystagmus. Both slow pursuit and saccadic eye movements were normal. PERRLA. Face was symmetric at rest and with grimace. Facial sensation was intact in all three distributions of the fifth cranial nerve bilaterally to touch. Hearing was intact to soft spoken voice. Tongue and palate were midline at rest and with protrusion of the tongue and elevation of the palate. Shoulders were symmetric at rest and with shoulder shrug. MOTOR: Weakness right psoas and quadriceps. Otherwise 5/5. He has a fine postural tremor intermittently more coarse at endpoint SENSATION: Reduced vibration distally in both legs in the feet and ankles. Pin and touch intact and probably symmetric although initially he thought the right foot might be a little less COORDINATION: Tremor evident during [id number]. DEEP TENDON REFLEXES: Right knee jerk 1+, left knee jerk 2+. Ankles symmetric GAIT: He can walk with a walker but after 3 steps the right knee collapses due to quadriceps weakness. HEENT: Normocephalic without dysmorphic features. Conjunctivae were not injected and sclerae were nonicteric. NECK: Carotid upstroke was strong bilaterally without bruits. The thyroid was not enlarged and there were no palpable lymph nodes. CHEST: Clear to auscultation. CARDIOVASCULAR: The heart sounds were normal without murmur or gallop. Regular rate and rhythm. EXTREMITIES: There was no edema or cyanosis. The skin was unremarkable. The spine exhibited normal thoracic kyphosis and normal lumbar lordosis without deformities. Data 09/12/24 07:06 09/12/24 07:06 A&P Assessment and plan (1) Chronic back pain: (2) Femoral neuropathy of right lower extremity: He presents with isolated weakness of the right psoas and quadriceps with slightly reduced right knee jerk and no sensory abnormality. I am particularly concerned that this could be retroperitoneal hemorrhage, presumably spontaneous as he has not had any trauma, and could have implications for his long-term anticoagulation and we are potentially adding aspirin to his anticoagulant. Plan on CT scan of the retroperitoneum and lumbosacral spine. If those are negative he can be discharged. He should have an MRI of the brain as an outpatient and I will see him in the clinic later this week. (3) Right leg weakness: (4) Orthostatic hypotension: Otherwise pretty healthy 58-year-old man who has had multiple episodes of syncope and near syncope and he is accustomed to getting dizzy when he stands up most of the time. He is not medication that would aggravate that except for tamsulosin which commonly causes orthostasis. His pulse disappears when he stands up and remained decreased for a full minute although he did not feel dizzy. Sertraline generally does not cause orthostasis but orthostasis is reported and at some point it may be necessary to try cutting back. Trazodone can aggravate orthostatic hypotension and he is on a large dose. That should probably be cut back. This does not have bearing on his current reason for hospitalization. He does not have any signs of parkinsonism except he has a fine postural tremor that is most likely familial or idiopathic. PDMP PDMP Reviewed: Not Reviewed Consult Attestations Medical Necessity Statement: Acute onset of right leg weakness with consideration of stroke or other cause Coding Level of Care Code Acute Code for Chg Fwd Diagnoses Chronic right-sided low back pain with right-sided sciatica M54.41; G89.29 Back pain location: low back pain Back pain laterality: right Sciatica presence: with sciatica Sciatica laterality: sciatica of right side Femoral neuropathy of right lower extremity G57.21 Right leg weakness R29.898 Orthostatic hypotension I95.1
--- NOTE | 2024-09-12 12:33 | CTR_ITS ---
PROCEDURE INFORMATION: Exam: CT Abdomen And Pelvis Without And With Contrast Exam date and time: 09/12/2024 1:33 PM Age: 58 years old Clinical indication: Other: Right leg weakness; Prior surgery; Surgery date: 6+ months; Surgery type: Gb, gastric sleeve; Additional info: Right leg weak TECHNIQUE: Imaging protocol: Computed tomography of the abdomen and pelvis without and with contrast. Radiation optimization: All CT scans at this facility use at least one of these dose optimization techniques: automated exposure control; mA and/or kV adjustment per patient size (includes targeted exams where dose is matched to clinical indication); or iterative reconstruction. Contrast material: OMNIPAQUE 350; Contrast volume: 100 ml; Contrast route: INTRAVENOUS (IV); COMPARISON: CT lumbar spine wo con* [id number] 09/12/2024 1:28 PM RADIATION DOSE METRICS: Total DLP (mGy-cm): 1228.27 FINDINGS: Lungs: There are minor atelectatic changes at the lung bases. Liver: Normal. No mass. Gallbladder and biliary ducts: Gallbladder has been removed. Bile ducts are not appreciably dilated. Pancreas: Unremarkable. Main pancreatic duct is not significantly dilated. Spleen: Normal. No splenomegaly. Adrenal glands: Normal. No mass. Kidneys and ureters: Kidneys are unremarkable. No calculi or hydronephrosis detected. Stomach and bowel: Evidence of gastric sleeve surgery. Scattered diverticula in the large bowel. No evidence of acute diverticulitis. Appendix: No evidence of appendicitis. Intraperitoneal space: Unremarkable. No free air. No significant fluid collection. Vasculature: Unremarkable. No abdominal aortic aneurysm. Lymph nodes: Unremarkable. No enlarged lymph nodes. Urinary bladder: Urinary bladder is completely opacified with contrast and unremarkable. Reproductive: Prostate gland is mildly enlarged. Bones/joints: Degenerative changes lower lumbar spine most pronounced at L5-S1. No acute bony abnormalities. Soft tissues: Unremarkable. CT/CT abdomen pelvis wo/w [id number] IMPRESSION: 1. No acute abnormalities within the abdomen and pelvis. 2. Nonemergent findings as above.
--- NOTE | 2024-09-12 12:34 | CTR_ITS ---
PROCEDURE INFORMATION: Exam: CT Lumbar Spine Without Contrast Exam date and time: 09/12/2024 1:28 PM Age: 58 years old Clinical indication: Weakness; Prior surgery; Surgery date: 6+ months; Surgery type: Gb, gastric sleeve; Additional info: Right leg and hip weak TECHNIQUE: Imaging protocol: Computed tomography of the lumbar spine without contrast. Radiation optimization: All CT scans at this facility use at least one of these dose optimization techniques: automated exposure control; mA and/or kV adjustment per patient size (includes targeted exams where dose is matched to clinical indication); or iterative reconstruction. COMPARISON: No relevant prior studies available. RADIATION DOSE METRICS: Total DLP (mGy-cm): 678.78 FINDINGS: Bones/joints: Lumbar curvature and alignment is unremarkable. There are no compression fractures, spondylolysis or spondylolisthesis. 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 L1-L2: Mild annular disc bulge with endplate osteophytic lipping resulting in flattening of the anterior thecal sac and borderline stenosis of the central canal. Neural foramina are patent L2-L3: Mild annular disc bulge with endplate osteophytic lipping and facet arthrosis effacing the anterior thecal sac and possibly mild stenosis of the central canal. Neural foramina are patent L3-L4: Diffuse annular disc bulge with endplate osteophytic lipping and facet arthrosis indenting the anterior thecal sac and possibly moderate stenosis of the central canal. Neural foramina are relatively patent L4-L5: Posterior degenerative disc space narrowing with annular disc bulge and facet arthrosis indenting the anterior thecal sac and probably moderate stenosis of the central canal. There is superimposed left foraminal disc herniation contributing to moderate narrowing of the left neural foramina. L5-S1: Diffuse degenerative disc space narrowing and endplate sclerosis with annular disc bulge, endplate osteophytic lipping and facet arthrosis resulting in mild effacement of the anterior thecal sac. There is severe bilateral foraminal stenosis.. Soft tissues: Unremarkable. CT/CT lumbar spine wo con* [id number] IMPRESSION: 1. Diffuse degenerative changes superimposed on congenital narrowing of the spinal canal resulting in multilevel spinal stenosis most pronounced at L3-L4 and L4-L5 where there is moderate spinal stenosis. Findings could be better assessed on MRI examination lumbar spine. 2. Multilevel acquired foraminal stenosis most pronounced at L5-S1 where there is severe narrowing of the neural foramina bilaterally.
[2024-09-12] MEDS: aspirin 81 mg EC Tablet PO (12:37)
--- NOTE | 2024-09-12 14:31 | P.PN_ITS ---
Subjective 2 Subjective: Overnight labs H&P reviewed. Appreciate neurology consult. Current complaints are that of right lower extremity weakness and right arm tingling and numbness. Medications: Reviewed: Yes Vitals/I&O/Wt Last Vital Signs Temp 97.8 F 09/12/24 11:26 Pulse 71 09/12/24 14:00 Resp 17 09/12/24 11:26 BP 142/81 09/12/24 11:26 Pulse Ox 97 09/12/24 11:26 O2 Del Method Room Air 09/12/24 11:26 09/11/24 09/12/24 09/12/24 22:59 06:59 14:59 Intake Total 200 / 200 Balance 200 / 200 Weight last 48 hrs Weight 89.358 kg Weight 89.675 kg Weight 87.09 kg Physical Exam 2 Narrative: General: No acute distress, AO x3 HEENT: PERRLA, pupils bilaterally equal and reactive, pallors not present Chest: Normal vesicular breath sounds, no added sounds, equal good air entry bilaterally CVS: S1-S2 regular, no murmurs, no tachycardia, no gallops, no rubs Abdomen: Soft, nontender, no organomegaly, bowel sounds present Data 09/12/24 07:06 09/12/24 07:06 A&P Assessment and plan (1) PFO (patent foramen ovale): (2) Ataxia: (3) Right leg weakness: Plan Tomasvitaliy Valderrama is a 58 yo man w/ a embolic CVA in 2015, due to a a [employer] [place] on 04/2015, complicated by a RUE and RLE weakness and , TIAs x 4 episodes, w/ the last TIA occurring in 04/2024 managed at [facility], who presented to the ED on 09/11/2024 w/ complaints of progressive R. arm tingling and weakness and progressive R. LE weakness. #R. LE weakness plus #R. face & RUE tinglingling and mild weakness - Order MRI outpatient. Consulted Neurology who will try to see hime today. - Ordered Swallow study for dysphagia - Ordered PT - Ordered ECHO w/ bubble study. - F/u lipid panel and TSH. #Hypogonadism: On testosterone injections. He is unable to tell me why he is on this. This may also increase his risk of stroke. #b/l intermittent hand tremors - possibly essential tremors - Defer to Neurology for eval. #Night sweats x 2 months - ordered quantiferon TB test. Differ to day hospitalist to order coccidiodes labs b/c I am not sure which to order. #SHRUTI on BiPAP: His will bring his machine. #Anxiety/Depression & PTSD - On Zoloft #Insomnia - On Trazodone 300mg qhs. #Seasonal Allergic Rhinitis - resumed home meds #BPH: Resumed home meds. #GERD: Resumed home meds. DVT ppx: defer to day hospitalist based on Neurology recs. September 12, 2024 Appreciate neurology recommendations. Patient presented with isolated weakness of the right psoas and quadriceps muscle. Clinically concern for intra- abdominal process such as retroperitoneal bleeding given that patient is on long-term anticoagulation versus nerve compression at the spinal level. Ordered for CT of the lumbosacral spine and abdomen and pelvis. Awaiting results for further treatment planning. Will resume Eliquis if there is no signs of intraperitoneal bleeding. Add aspirin 81 mg p.o. daily. PDMP PDMP Reviewed: Not Reviewed Attestations 2 Medical Necessity Statement*: Awaiting CT scans as above Coding Level of Care Code Acute Code for Chg Fwd Diagnoses PFO (patent foramen ovale) Q21.12 Ataxia R27.0 Right leg weakness R29.898
[2024-09-12] MEDS: acetaminophen 325 mg Tablet 650 MG PO (16:49)
[2024-09-12] MEDS: fluticasone nasal spray 16gm Btl 1 SPRAY NASAL (19:47)
[2024-09-12 20:05] LABS: Bilirubin Urine Negative (Negative); Blood Urine Negative (Negative); Glucose Urine UA Negative (Normal); Ketones Urine Trace (Negative); Leukocyte Esterase Urine Negative (Negative); Nitrate Urine Negative (Negative); Protein Urine Negative (Negative); Urine Appearance Clear (CLEAR); Urine Color Yellow (Yellow); pH Urine 6.5 (5-7)
[2024-09-12 20:10] LABS: Add Urine Microscopic? YES; Bacteria Urine None Seen /hpf; Hyaline Casts Urine 0-4 /lpf; RBC Urine 0-2 /hpf (0-2); Squamous Epithelial Cell Urine 0-5 /hpf (0-5); WBC Urine 0-5 /hpf (0-5)
[2024-09-12 20:19] LABS: Specific Gravity, Urine 1.067 (1.005-1.030)
[2024-09-12] MEDS: trazodone 150 mg Tablet 300 MG PO (20:34)
[2024-09-12] MEDS: sertraline 100 mg Tablet PO (20:34)
[2024-09-13 04:11] VITALS: PULSE 68
[2024-09-13 04:44] VITALS: BP 138/64; PULSE 82; RESP 18; TEMP 36.8; O2SAT 95
[2024-09-13 06:18] LABS: Basophils % 0.7 %; Eosinophils # 0.1 10^3/uL (0.0-0.8); Eosinophils % 2.2 %; Hematocrit 43.9 % (37-53); Lymphocytes # 1.6 10^3/uL (0.8-4.8); Lymphocytes % 29.7 %; Mean Corpuscular HGB Conc 33.5 g/dL (30-55); Mean Corpuscular Volume 92.6 fl (82-101); Mean Platelet Volume 9.3 fL (7.4-10.4); Monocytes # 0.4 10^3/uL (0.2-0.9); Monocytes % 8.1 %; Neutrophils # 3.21 10^3/uL (1.8-7.7); Neutrophils % 59.1 %; Nucleated Red Blood Cells % 0 %; Platelet Count 195 10^3/cmm (157-399); Red Blood Count 4.74 10^6/uL (3.85-5.65); Red Cell Distribution Width 12.9 % (12.1-15.1); White Blood Count 5.43 10^3/uL (3.29-11.43)
[2024-09-13] MEDS: pantoprazole DR 40 mg Tablet PO (06:38)
[2024-09-13 06:39] LABS: Alanine Aminotransferase 17 U/L (0-41); Albumin Level 3.9 g/dL (3.5-5.2); Alkaline Phosphatase 57 U/L (40-130); Anion Gap 12.9 (5-19); Aspartate Amino Transferase 13 U/L (0-40); Blood Urea Nitrogen 14 mg/dL (8-23); Calcium 9.1 mg/dL (8.5-10.5); Carbon Dioxide 26 mmol/L (22-29); Chloride 105 mmol/L (98-107); Creatinine Clr Calc Pharmacy 89.9147; Globulin 2.4 g/dL (1.3-4.6); Glomerular Filtration Rate 76.2 mL/min (90-130); Glucose 112 mg/dL (65-115); Magnesium 1.8 mg/dL (1.7-2.3); Osmolality Calculated 291 mOsm/kg (285-295); Phosphorus 2.8 mg/dL (2.5-4.5); Potassium 3.9 mmol/L (3.5-5.1); Sodium 140 mmol/L (136-145); Total Protein 6.3 g/dL (6.6-8.7)
[2024-09-13] MEDS: acetaminophen 325 mg Tablet 650 MG PO ×2 (06:43→12:23)
--- NOTE | 2024-09-13 07:00 | MR_ITS ---
WS: [id number] MRI LUMBAR SPINE NONCONTRAST TECHNIQUE: Sagittal T1, T2 and STIR imaging. Axial T1 and T2 imaging. CLINICAL INFORMATION: RLE weakness, assess for nerve compression COMPARISON: None. FINDINGS: Mild lumbar curve. No acute compression. Slight retrolisthesis L1 on L2 L2 on L3 and L3 on L4. Disc space narrowing worse at L5-S1. L1-L2: Mild annular bulging. Narrowing of the RIGHT subarticular recess. Mild facet arthropathy. L2-L3: Mild annular bulging. Mild central canal stenosis with RIGHT paracentral protrusion. Impingement of traversing RIGHT L3 nerve root. Mild RIGHT foraminal narrowing. Moderate facet arthropathy. Small annular fissure. L3-L4: RIGHT paracentral protrusion with moderate central canal stenosis. Impingement on the traversing RIGHT L4 nerve root. Mild RIGHT foraminal narrowing. Moderate facet arthropathy. L4-L5: Mild disc bulging with moderate central canal stenosis. Impingement of traversing L5 nerve roots. Moderate facet arthropathy. Mild bilateral foraminal narrowing. L5-S1: Central and LEFT paracentral disc bulging. Impingement traversing LEFT S1 nerve root. Moderate facet arthropathy with ligamentum flavum hypertrophy. Mild LEFT greater than RIGHT foraminal narrowing. Visualized pelvic bony structures: Normal. Paravertebral soft tissues: Normal. Small disc protrusions at C5-C6 and C6-C7. MR/MR lumbar spine wo con* [id number] IMPRESSION: 1. Moderate central canal stenosis L3-L4 and L4-L5 described above. 2. Mild central canal stenosis L2-3 and L5-S1. 3. Impingement of traversing L5 nerve roots at L4-5. 4. Impingement on the traversing RIGHT L3 and L4 nerve roots at L2-3 and L3-4 respectively
[2024-09-13 07:14] VITALS: BP 112/70; PULSE 67; RESP 14; TEMP 36.4; O2SAT 98
--- NOTE | 2024-09-13 08:00 | FL_ITS ---
WS: [id number] MODIFIED BARIUM SWALLOW TECHNIQUE: Modified barium swallow with speech therapy using multiple consistencies. FLUOROSCOPY TIME: 1min [id number] # of spot films: 0 CLINICAL INFORMATION: Oropharyngeal dysphagia COMPARISON: None. FINDINGS: Multiple consistencies utilized. Early spillage with pooling in the valleculae and piriform sinuses. No evidence of tracey aspiration or penetration. No difficulties with the barium tablet. FL/FL barium swallow modifd [id number] IMPRESSION: 1. Early spillage with pooling in the valleculae and piriform sinuses 2. No tracey aspiration.
--- NOTE | 2024-09-13 09:02 | P.PN_ITS ---
Subjective 2 Subjective: He has had chronic back pain for many years. Right leg weakness developed several days ago and he is still having trouble weightbearing on the right leg to the point that his wonders how she is going to get him in the house. His MRI does not show evidence of a stroke. Echo with bubble study accomplished during his hospitalization confirms that he has a PFO. He feels no differently today. He says that the right arm numbness that was part of his presenting complaint has been longstanding and he thinks it may be related to his carpal tunnel. Vitals/I&O/Wt Last Vital Signs Temp 97.6 F 09/13/24 07:14 Pulse 67 09/13/24 07:14 Resp 14 09/13/24 07:14 BP 112/70 09/13/24 07:14 Pulse Ox 98 09/13/24 07:14 O2 Del Method Room Air 09/13/24 07:14 09/12/24 09/13/24 09/13/24 22:59 06:59 14:59 Intake Total 120 / 360 880 / 1240 120 / 120 Balance 120 / 360 880 / 1240 120 / 120 Weight last 48 hrs Weight 197 lb Weight 197 lb Weight 197 lb 11.2 oz Weight 192 lb Physical Exam 2 Narrative: Exam unchanged. Persistent weakness of right quadriceps. I am not as impressed with reflex asymmetry today but the right knee jerk may be slightly reduced compared to the left. Data 09/13/24 06:11 09/13/24 06:11 MRI: My impression: No sign of an acute stroke. Right L3 and L4 nerve root compression in the foramina Radiologist's impression: MRI brain 1. No evidence of restricted diffusion to suggest acute ischemia. 2. Minimal small vessel changes. Mild parenchymal volume loss. 3. No hemosiderin on the susceptibility weighted images. 4. Tiny chronic lacunar infarct LEFT cerebellum 5. No other acute findings. MRI LS spine 1. Moderate central canal stenosis L3-L4 and L4-L5 described above. 2. Mild central canal stenosis L2-3 and L5-S1. 3. Impingement of traversing L5 nerve roots at L4-5. 4. Impingement on the traversing RIGHT L3 and L4 nerve roots at L2-3 and L3-4 respectively Signed By: Bethel Woodson MD Signed Date/Time: 09/13/24 A&P Assessment and plan (1) Lumbar spondylosis with myelopathy: Right leg weakness with no sign of an acute stroke and clear evidence of multiple nerve root compromise in the lumbosacral spine. His weakness is severe and has developed subacutely. It would be reasonable to change from apixaban to Lovenox for bridging therapy in case Dr. Headley wants to take him to surgery. I went over the MRI results with the patient and explained that the findings are consistent with his deficit. His was present on cell phone (2) Orthostatic hypotension: He just started trazodone recently at a very high dose because he was not sleeping at all. He was experiencing orthostatic hypotension even before he was started on that drug. I talked with him about recent studies suggesting that somatic problems such as orthostasis can develop years before dementia and have implications for treatment. I will be following up with him as an outpatient. Although he has some long-term memory problems that are unexplained, his short- term memory is good. (3) ASD (atrial septal defect): Confirmed by bubble study but he has no sign of stroke. (4) Essential tremor: Essential tremor evident on exam. No family history. PDMP PDMP Reviewed: Not Reviewed Attestations 2 Medical Necessity Statement*: Severe right leg weakness to the point of compromising his gait Coding Level of Care Code Acute Code for [facility] Diagnoses Lumbar spondylosis with myelopathy M47.16 Orthostatic hypotension I95.1 ASD (atrial septal defect) Q21.10 Essential tremor G25.0
[2024-09-13] MEDS: aspirin 81 mg EC Tablet PO (09:21)
[2024-09-13] MEDS: montelukast sodium 10 mg Tablet PO (09:21)
--- NOTE | 2024-09-13 10:11 | PC.NURSE ---
hedis coordinator rounds @ 0900- gave patient stroke education book.
--- NOTE | 2024-09-13 10:24 | PC.CHAP ---
Pastoral Care Encounter/Spiritual Assessment Type of Contact [] Declined material specialist visit [] Patient/Family/Request visit [] Outpatient visit [] Follow-up visit [] Physician referral [] Code/Alert [x] Routine visit [] Staff referral [] Actively dying [] Patient sleeping [] Family support [] [] Out of room [] Palliative care [] [] Receiving care in room [] Pre-surgical visit [] Trauma [] Long length of stay [] ICU visit [] Other: Relational/Emotional Strength [x] Patient feels connected with others/family/visitors/staff [] Distress [] Loneliness/isolation [] Abandonment Spirituality of Patient [x] Person of Allison [] Attends Congregation of their Allison [x] Believes in Prayer [] Reads Bible or Sikh materials [] There are Spiritual issues to be addressed [employer] Interventions [x] Prayer [x] Active listening [x] Non-anxious presence [x] Spiritual/emotional support [] Crisis/trauma care [] Spiritual counseling [] Bereavement support [] Provided bereavement packet [] Provided Bible/devotional materials [] Provided toy/stuffed animal, coloring book to patient or family member [] Provided Communion [] Anointing/[place] [] Salvation [x] Completed spiritual assessment [] Other: Impact on Illness or Injury [] Angry [] Fearful [] Anxious [] Often cries [] Exhaustion [] Unable to work [] Unable to attend yazidi [] Unable to walk/stand [] Unable to read [] Unable to drive [] Unable to eat/drink [] Unable to sleep [] Unable to be with family [] Patient intubated [] Other: Summary Time spent with patient 5 min
[2024-09-13 10:49] VITALS: BP 109/62; PULSE 64; RESP 15; TEMP 37; O2SAT 95
--- NOTE | 2024-09-13 13:11 | P.CONIM_ITS ---
Providers/Reason For Consult 2 Consulting Physician/Specialty*: Hospitalist Reason for Consult*: Back pain and right leg weakness Attending Physician: Sarai Castillo MD Primary Care Provider: Yossi Cartwright MD History of Present Illness History of Present Illness Tonio Valderrama is a 58 year old male patient planing of right leg weakness. Started couple days ago. Is been complaining of back pain as well. Some going for couple days as well. Patient stated that when he takes about 3 steps feels his legs and give out. Review of Systems 2 Const: Reports: other ( sleep apnea on CPAP); Denies: fever(s) or chills Eyes: Denies: change in vision Card: Reports: lightheadedness and syncope; Denies: chest pain, palpitations, irregular heart rhythm or dyspnea on exertion Resp: Denies: dyspnea GI: Denies: abdominal pain : Denies: flank pain Musc: Reports: back pain and extremity pain; Denies: neck pain Skin/Breast: Denies: rash Neuro: Reports: numbness in extremities (Right arm), weakness in extremities (Right leg), lack of coordination and other (longstanding tremor); Denies: headache(s) Medications/Allergies Home Medications ?Medication ?Instructions ?Recorded ?Confirmed ?Last Taken ?Type Bipap machine and mask 01/23 #1 ea 01/19/24 09/12/24 Un known Rx apixaban 5 mg tablet (Eliquis) 5 mg PO BID #60 tabs 09/12/24 03/18/24 Rx montelukast 10 mg tablet 10 mg PO DAILY #30 tabs 10/0 05/1309/12/24 03/18/24 Rx (Singulair) tamsulosin 0.4 mg capsule 0.4 mg PO DAILY #30 caps 05/1309/12/24 09/11/24 Rx sertraline 100 mg tablet (Zoloft) 100 mg PO DAILY #30 tabs 02/10/24 09/12/24 09/11/24 Rx acetaminophen 500 mg tablet 1,000 mg PO Q6H PRN Pain 1 05/19/23 09/12/24 03/18/24 History [id number] 32 mg-folic acid 1 See Rx Instructions .R oute .COMPLEX 03/19/24 09/12/24 09/11/24 History mg-dha 315 mg-Lactobac casei capsule (Multi Pro) trazodone 100 mg tablet 300 mg (3 x 100 mg) PO .HS P RN 07/15/24 09/12/24 09/11/24 Rx insomnia #90 tabs pantoprazole 40 mg tablet,delayed 40 mg PO DAILY #30 t abs 07/19/24 09/12/24 09/11/24 Rx release (Protonix) testosterone cypionate 200 mg/mL 300 mg (1.5 mL) SUBCU T .Q 14 Days 08/19/24 09/12/24 09/05/24 Rx intramuscular oil #4 mL aspirin 81 mg tablet,delayed 81 mg PO DAILY 30 days #3 0 tabs 09/13/24 Unknown Rx release prednisone 20 mg tablet 20 mg PO DAILY #15 tabs 08/19 11/11 Unknown Rx Allergies Allergy/AdvReac Type Severity Reaction Status Date / Time No Known Allergies Allergy Verified 08/24/24 10:48 Current Medications Generic Name Dose Route Start Last Admin Trade Name Aroldoq PRN Reason Stop Dose Admin Acetaminophen 650 mg 09/12/24 09:23 09/13/24 12:23 Acetaminophen 325 Mg Tablet PO 650 mg Q6H PRN Administration Mild/Mod Pain Or Temp >/= 101 Aspirin 81 mg 09/12/24 12:00 09/13/24 09:21 Aspirin 81 Mg Ec Tablet PO 81 mg DAILY GABBIE Administration Fluticasone Propionate 1 spray 09/12/24 17:12 09/12/24 19:47 Fluticasone Nasal [place] 16gm Btl NASAL 1 spray DAILY PRN Administration sinus congestion Montelukast Sodium 10 mg 09/12/24 09:00 09/13/24 09:21 Montelukast Sodium 10 Mg Tablet PO 10 mg DAILY GABBIE Administration Montelukast Sodium 10 mg 09/13/24 09:00 09/13/24 09:23 Montelukast Sodium 10 Mg Tablet PO Not Given DAILY GABBIE Pantoprazole Sodium 40 mg 09/12/24 06:45 09/13/24 06:[address] 40 Mg Tablet PO 40 mg QAM GABBIE Administration Sertraline HCl 100 mg 09/12/24 21:00 09/12/24 20:34 Sertraline 100 Mg Tablet PO 100 mg BEDTIME GABBIE Administration Trazodone HCl 300 mg 09/12/24 21:00 09/12/24 20:34 Trazodone 150 Mg Tablet PO 300 mg BEDTIME GABBIE Administration PFSH Acute 2 PFSH: Medical History (Updated 09/13/24 @ 09:10 by Siobhan Cervantes MD) Insomnia PTSD (post-traumatic stress disorder) GERD (gastroesophageal reflux disease) Allergic rhinitis PFO (patent foramen ovale) SHRUTI treated with BiPAP ASD (atrial septal defect) Psychiatric care Chronic back pain History of embolic stroke Surgical History (Updated 09/12/24 @ 06:45 by Li Rich MD) H/O gastric bypass In 04/2021 in [facility]. H/O shoulder surgery R. shoulder surgery due to bone spurs H/O wrist surgery due to R. wrist fracture at work. Surgery occurred around Jan or Feb 2016 Family History (Updated 09/12/24 @ 06:47 by Li Rich MD) Sister Brain tumor Brother Brain tumor Mother Heart disease Grandmother Heart disease Father Throat cancer Social History (Updated 09/12/24 @ 06:48 by Li Rich MD) Smoking and tobacco/nicotine status: former use of tobacco/nicotine Quit status (tobacco/nicotine): has quit using Year quit tobacco: 06/2024 Former quit date comment: Smoked pipes only for 2 years. Alcohol intake: current Alcohol intake frequency: holidays/special occasions only Substance/Drug Use: never Vitals/I&O/Wt Last Vital Signs Temp 98.6 F 09/13/24 10:49 Pulse 64 09/13/24 10:49 Resp 15 09/13/24 10:49 BP 109/62 09/13/24 10:49 Pulse Ox 95 09/13/24 10:49 O2 Del Method Room Air 09/13/24 10:49 09/12/24 09/13/24 09/13/24 22:59 06:59 14:59 Intake Total 120 / 360 880 / 1240 120 / 120 Balance 120 / 360 880 / 1240 120 / 120 Weight last 48 hrs Weight 197 lb Weight 197 lb Weight 197 lb 11.2 oz Weight 192 lb Physical Exam 2 Narrative: Alert and oriented x 3 Head is normocephalic atraumatic Respirations are intact No evidence of any rashes or infection 5/5 strength in bilateral upper and lowe r extremities Sensation intact in all extremities Data 09/13/24 06:11 09/13/24 06:11 A&P Assessment and plan (1) Chronic back pain: Patient had back pain on and off for years she has had radiofrequency ablations and is gone to pain management done physical therapy. This point plan is to give a prednisone taper and we will see him in the clinic in about a week to check on see how he is doing. PDMP PDMP Reviewed: Not Reviewed Consult Attestations 2 Medical Necessity Statement: Per primary service Coding Level of Care Code Acute Code for Chg Fwd Diagnoses Chronic right-sided low back pain with right-sided sciatica M54.41; G89.29 Back pain location: low back pain Back pain laterality: right Sciatica presence: with sciatica Sciatica laterality: sciatica of right side
[2024-09-13 13:55] VITALS: BP 109/62; PULSE 64; RESP 16; TEMP 37; O2SAT 95
--- NOTE | 2024-09-13 15:12 | P.DS_ITS ---
Discharge Providers Date of Admission: 09/12/24 09:24 Date of Discharge: September 13, 2024 Attending Provider at Admission: Li Rich MD Attending Provider at Discharge: Sarai Castillo MD Primary Care Provider: Yossi Cartwright MD Diagnoses at Discharge Discharge Diagnosis (1) Chronic back pain: Status: Acute Qualifiers: Back pain location: low back pain Back pain laterality: right Sciatica presence: with sciatica Sciatica laterality: sciatica of right side Qualified Code(s): M54.41 - Lumbago with sciatica, right side; G89.29 - Other chronic pain (2) Muscle weakness of lower extremity: Status: Acute (3) Right leg weakness: Status: Acute (4) History of embolic stroke: Status: Acute Reason for Visit Reason for Visit: R side weakness Hospital Course Hospital Course Tonio Valderrama is a 58 year old male with a past medical history of atrial septal defect and chronic anxiety, past history of CVA in 2017 following which she was initiated on Eliquis. He presented to the emergency room on September 12, 2024 with right-sided weakness and ataxia with weakness in the right hip and tingling of the right hand. He was evaluated by neurology, MRI of the brain was performed which showed an old cerebellar stroke but no new intracranial events. There was concern for right lower extremity related to lumbar stenosis therefore patient initially underwent a CT of the back which was followed by an MRI of the lumbar spine. Lumbar spine MRI showed moderate central canal stenosis at the L3-L4-L5 levels with impingement of traversing L5 nerve roots at L4-L5.Patient was evaluated by spine surgery today to assess if he needs surgical intervention for these findings. No urgent surgical intervention is currently indicated. He is being discharged with a prednisone taper given the above findings. Follow-up with Dr. Headley as an outpatient. Discharge was performed later in the day today pending MRI head MRI back, spine surgery consult and a modified barium swallow which did not reveal any signs of tracey aspiration. Physical Exam Narrative: General: No acute distress, AO x3 HEENT: PERRLA, pupils bilaterally equal and reactive, pallors not present Chest: Normal vesicular breath sounds, no added sounds, equal good air entry bilaterally CVS: S1-S2 regular, no murmurs, no tachycardia, no gallops, no rubs Abdomen: Soft, nontender, no organomegaly, bowel sounds present Neuro: RLE 4/5, rest 5/5 , no facial deformity or aphasia Discharge Data Studies Completed and Pending Completed Studies During Hospitalization Category Date Time Status CT abdomen pelvis wo/w [id number] Routine Cat Scan 09/12/24 12:[address] head wo con* [id number] Stat Cat Scan 09/11/24 16:[address] lumbar spine wo con* [id number] Routine Cat Scan 09/12/24 12:34 Completed CTA head neck [CT angio headneck* [id number]] Stat Cat Scan 09/11/24 18:49 Completed FL barium swallow modifd [id number] Routine Exams 09/13/24 08:00 Completed MR head wo con* [id number] Routine MRI 09/13/24 15:58 Completed MR lumbar spine wo con* [id number] Routine MRI 09/13/24 07:00 Completed CV. echo w/w bubble cont [id number] Routine Ultrasound 09/12/24 09:35 Completed Pending at discharge Category Date Time Status [id number] Plus Routine Lab 09/12/24 09:46 Ordered Radiology Impressions Head CT 09/11/24 16:27 IMPRESSION: No acute intracranial abnormality. Head/Neck CTA 09/11/24 18:49 IMPRESSION: No large vessel stenosis or occlusion. IMPRESSION: No stenosis or occlusion. REFERENCES: NASCET CRITERIA. The degree of stenosis in the cervical segment of the internal carotid artery is based on NASCET criteria. Normal is no stenosis. Mild is less than 50% stenosis. Moderate is 50-69% stenosis. Severe is 70% to 99% stenosis. Total occlusion is no detectable patent lumen. Abdomen/Pelvis CT 09/12/24 12:33 IMPRESSION: 1. No acute abnormalities within the abdomen and pelvis. 2. Nonemergent findings as above. Lumbar Spine CT 09/12/24 12:34 IMPRESSION: 1. Diffuse degenerative changes superimposed on congenital narrowing of the spinal canal resulting in multilevel spinal stenosis most pronounced at L3-L4 and L4-L5 where there is moderate spinal stenosis. Findings could be better assessed on MRI examination lumbar spine. 2. Multilevel acquired foraminal stenosis most pronounced at L5-S1 where there is severe narrowing of the neural foramina bilaterally. Lumbar Spine MRI 09/13/24 07:00 IMPRESSION: 1. Moderate central canal stenosis L3-L4 and L4-L5 described above. 2. Mild central canal stenosis L2-3 and L5-S1. 3. Impingement of traversing L5 nerve roots at L4-5. 4. Impingement on the traversing RIGHT L3 and L4 nerve roots at L2-3 and L3-4 respectively Modified Barium Swallow 09/13/24 08:00 IMPRESSION: 1. Early spillage with pooling in the valleculae and piriform sinuses 2. No tracey aspiration. Head MRI 09/13/24 15:58 IMPRESSION: 1. No evidence of restricted diffusion to suggest acute ischemia. 2. Minimal small vessel changes. Mild parenchymal volume loss. 3. No hemosiderin on the susceptibility weighted images. 4. Tiny chronic lacunar infarct LEFT cerebellum 5. No other acute findings. Laboratory Results WBC 5.43 10^3/uL (3.29-11.43) 09/13/24 06:11 RBC 4.74 10^6/uL (3.85-5.65) 09/13/24 06:11 Hgb 14.70 g/dL (11.27-16.99) 09/13/24 06:11 Hct 43.9 % (37-53) 09/13/24 06:11 MCV 92.6 fl (82-101) 09/13/24 06:11 MCH 31.0 pg (27-33) 09/13/24 06:11 MCHC 33.5 g/dL (30-55) 09/13/24 06:11 RDW 12.9 % (12.1-15.1) 09/13/24 06:11 Plt Count 195 10^3/cmm (157-399) 09/13/24 06:11 MPV 9.3 fL (7.4-10.4) 09/13/24 06:11 Neut % (Auto) 59.1 % 09/13/24 06:11 Lymph % (Auto) 29.7 % 09/13/24 06:11 [place] % (Auto) 8.1 % 09/13/24 06:11 Eos % (Auto) 2.2 % 09/13/24 06:11 Baso % (Auto) 0.7 % 09/13/24 06:11 Neut # (Auto) 3.21 10^3/uL (1.8-7.7) 09/13/24 06:11 Lymph # (Auto) 1.6 10^3/uL (0.8-4.8) 09/13/24 06:11 [place] # (Auto) 0.4 10^3/uL (0.2-0.9) 09/13/24 06:11 Eos # (Auto) 0.1 10^3/uL (0.0-0.8) 09/13/24 06:11 Baso # (Auto) 0.0 10^3/uL (0.0-0.1) 09/13/24 06:11 Nucleated RBC % (auto) 0 % 09/13/24 06:11 Nucleated RBCs # 0.0 /100WBC 09/13/24 06:11 PT 12.50 SECONDS (12.1-14.9) 09/12/24 07:06 INR 0.88 (0.8-1.2) 09/12/24 07:06 APTT 28.7 SECONDS (23.9-36.7) 09/12/24 07:06 Sodium 140 mmol/L (136-145) 09/13/24 06:11 Potassium 3.9 mmol/L (3.5-5.1) 09/13/24 06:11 Chloride 105 mmol/L (98-107) 09/13/24 06:11 Carbon Dioxide 26 mmol/L (22-29) 09/13/24 06:11 Anion Gap 12.9 (5-19) 09/13/24 06:11 BUN 14 mg/dL (8-23) 09/13/24 06:11 Creatinine 1.0 mg/dL (0.7-1.2) 09/13/24 06:11 GFR Calculation 76.2 mL/min (90-130) L 09/13/24 06:11 Glucose 112 mg/dL (65-115) 09/13/24 06:11 POC Glucose 110 mg/dL (70-110) 09/11/24 16:07 Calculated Osmolality 291 mOsm/kg (285-295) 09/13/24 06:11 Calcium 9.1 mg/dL (8.5-10.5) 09/13/24 06:11 Phosphorus 2.8 mg/dL (2.5-4.5) 09/13/24 06:11 Magnesium 1.8 mg/dL (1.7-2.3) 09/13/24 06:11 Total Bilirubin 1.0 mg/dL (0.15-1.2) 09/13/24 06:11 AST 13 U/L (0-40) 09/13/24 06:11 ALT 17 U/L (0-41) 09/13/24 06:11 Alkaline Phosphatase 57 U/L (40-130) 09/13/24 06:11 Total Protein 6.3 g/dL (6.6-8.7) L 09/13/24 06:11 Albumin 3.9 g/dL (3.5-5.2) 09/13/24 06:11 Globulin 2.4 g/dL (1.3-4.6) 09/13/24 06:11 Triglycerides 38 mg/dL (0-150) 09/12/24 07:06 Cholesterol 188 mg/dL (0-200) 09/12/24 07:06 LDL Cholesterol, Calc 91 mg/dL (50-129) 09/12/24 07:06 HDL Cholesterol 89 mg/dL (60-100) 09/12/24 07:06 LDL/HDL Ratio 1.02 RATIO (0.00-3.22) 09/12/24 07:06 Cholesterol/HDL Ratio 2.11 mg/dL (1.0-5.00) 09/12/24 07:06 TSH 1.93 uIU/mL (0.27-4.20) 09/12/24 07:06 Urine Color Yellow (Yellow) 09/12/24 19:51 Urine Appearance Clear (CLEAR) 09/12/24 19:51 Urine pH 6.5 (5-7) 09/12/24 19:51 Ur Specific [place] 1.067 (1.005-1.030) H 09/12/24 19:51 Urine Protein Negative (Negative) 09/12/24 19:51 Urine Glucose (UA) Negative (Normal) 09/12/24 19:51 Urine Ketones Trace (Negative) 09/12/24 19:51 Urine Blood Negative (Negative) 09/12/24 19:51 Urine Nitrate Negative (Negative) 09/12/24 19:51 Urine Bilirubin Negative (Negative) 09/12/24 19:51 Urine Urobilinogen 1.0 mg/dL (Negative) 09/12/24 19:51 Ur Leukocyte Esterase Negative (Negative) 09/12/24 19:51 Urine RBC 0-2 /hpf (0-2) 09/12/24 19:51 Urine WBC 0-5 /hpf (0-5) 09/12/24 19:51 Ur Squamous Epith Cells 0-5 /hpf (0-5) 09/12/24 19:51 Amorphous Sediment Not Reportable 09/12/24 19:51 Urine Bacteria None seen /hpf (NONE) 09/12/24 19:51 Hyaline Casts 0-4 /lpf H 09/12/24 19:51 Vitals Last Vital Signs Temp 98.6 F 09/13/24 13:55 Pulse 64 09/13/24 13:55 Resp 16 09/13/24 13:55 BP 109/62 09/13/24 13:55 Pulse Ox 95 09/13/24 13:55 O2 Del Method Room Air 09/13/24 10:49 Discharge Plan Discharge Patient Disposition: Home Condition: Stable Prescriptions: New prednisone 20 mg tablet 20 mg PO DAILY Qty: 15 0RF Rx Instructions: 60 mg for 3 days (3 tabs) 40 mg for 2 days (2 tabs) 5 mg for 2 days (1 tab) Continued tamsulosin 0.4 mg capsule 0.4 mg PO DAILY Qty: 30 11RF montelukast [Singulair] 10 mg tablet 10 mg PO DAILY Qty: 30 11RF Eliquis 5 mg tablet 5 mg PO BID Qty: 60 11RF (DME) Bipap machine and mask 01/23 See Rx Instructions .Route .MEDSUPPLY Qty: 1 0RF Rx Instructions: supplies as needed sertraline [Zoloft] 100 mg tablet 100 mg PO DAILY Qty: 30 11RF pantoprazole [Protonix] 40 mg tablet,delayed release (DR/EC) 40 mg PO DAILY Qty: 30 11RF trazodone 100 mg tablet 300 mg PO .HS PRN (Reason: insomnia) Qty: 90 2RF testosterone cypionate 200 mg/mL oil 300 mg SUBCUT .Q 14 Days Qty: 4 5RF acetaminophen 500 mg Tablet 1,000 mg PO Q6H PRN (Reason: Pain) Multi Pro 32 mg iron-1 mg -315 mg Capsule See Rx Instructions .ROUTE .COMPLEX Rx Instructions: Apply 1 patch daily Discharge Orders: Discharge Order (Routine); Ordered 09/13/24 Ordered By: Sarai Castillo Other Ambulatory Orders: DME: Walker (Order) Location: None Selected Ordered By: Sarai Castillo [place] [facility] [place] Siobhan Cervantes MD [Physician, Neurology] - 01/26/25 3:00 pm Roe Headley DO [Physician, Orthopedics] - 09/20/24 3:00 pm Yossi Cartwright MD [Primary Care Provider, Family Practice] - 09/19/24 1:50 pm Patient Instructions: Prednisone (By mouth), Tremors (GEN), Opioid Safety Activity Restrictions/Additional Instructions: Follow-up orthopedic clinic in [address] Headley Discharge Attestations Time Spent in Discharge Care*: greater than 30 min Quality Metrics Clinical Quality Measures [ No reported AMI, CVA or VTE this stay] Coding Level of Care Code Acute Code for g Fwd Diagnoses Chronic right-sided low back pain with right-sided sciatica M54.41; G89.29 Back pain location: low back pain Back pain laterality: right Sciatica presence: with sciatica Sciatica laterality: sciatica of right side Muscle weakness of lower extremity M62.81 Right leg weakness R29.898 History of embolic stroke Z86.73
--- NOTE | 2024-09-13 15:58 | MR_ITS ---
WS: [id number] MRI HEAD WITHOUT CONTRAST TECHNIQUE: Sagittal T1, T2 axial, T2 axial FLAIR, axial and coronal T1 images, axial susceptibility weighted imaging, axial diffusion weighted images, and coronal T2 images were obtained. CLINICAL INFORMATION: assess for CVA COMPARISON: None. FINDINGS: No evidence of restricted diffusion to suggest acute ischemia. Minimal small vessel changes. Mild parenchymal volume loss. Chronic lacunar infarct LEFT cerebellum. Normal vascular flow voids at the skull base. No extra-axial fluid collections. No evidence of mass or mass effect. Paranasal sinuses and mastoid air cells are well aerated. Normal posterior nasopharynx. No hemosiderin on the susceptibly weighted images. Normal optic chiasm and pituitary infundibulum. MR/MR head wo con* [id number] IMPRESSION: 1. No evidence of restricted diffusion to suggest acute ischemia. 2. Minimal small vessel changes. Mild parenchymal volume loss. 3. No hemosiderin on the susceptibility weighted images. 4. Tiny chronic lacunar infarct LEFT cerebellum 5. No other acute findings.
[2024-09-15 15:50] LABS: Quantiferon Mitogen 8.81 IU/mL; Quantiferon Nil 0.01 IU/mL; Quantiferon Plus TB1 0.01 IU/mL; Quantiferon Plus TB2 0.02 IU/mL; Quantiferon TB Gold NEGATIVE (NEGATIVE)
== END 2024-09-13 13:56 | disposition home or self-care (01) | DRG 552 ==
LOC: ER 19:57 → MEDSURG 20:52
PROVIDERS: Admitting Provider Internal Medicine; Emergency Provider Student in an Organized Health Care Education/Training Program; PCP Family Medicine; Visit Provider Student in an Organized Health Care Education/Training Program
DX: M51.16 Intervertebral disc disorders with radiculopathy, lumbar region (principal); M47.16 Other spondylosis with myelopathy, lumbar region; Q21.10 Atrial septal defect, unspecified; Q21.12 Patent foramen ovale; M47.26 Other spondylosis with radiculopathy, lumbar region; G89.29 Other chronic pain; F41.9 Anxiety disorder, unspecified; M62.81 Muscle weakness (generalized); G47.33 Obstructive sleep apnea (adult) (pediatric); F32.A Depression, unspecified; F43.10 Post-traumatic stress disorder, unspecified; G47.00 Insomnia, unspecified; N40.0 Benign prostatic hyperplasia without lower urinary tract symptoms; G25.0 Essential tremor; E29.1 Testicular hypofunction; I95.1 Orthostatic hypotension; Z86.73 Personal history of transient ischemic attack (TIA), and cerebral infarction without residual deficits; Z79.01 Long term (current) use of anticoagulants; Z79.891 Long term (current) use of opiate analgesic; Z99.89 Dependence on other enabling machines and devices; Z87.891 Personal history of nicotine dependence; Z98.84 Bariatric surgery status
CPT/HCPCS: 36415; 36416; 70450; 70496; 70498; 70551; 72131; 72148; 74178; 74230; 80053; 80061; 81001; 82962; 83735; 84100; 84443; 85025; 85610; 85730; 86480; 92610; 92611; 93005; 97116; 97161; 97165; 99285; C8929; G0378; J9999

== ENCOUNTER → 2024-09-19 14:43 | Outpatient (BNVA) | payer MEDICARE, SELFPAY | PROVIDERS: PCP Family Medicine; Visit Provider Family Medicine | DX: R30.0 Dysuria (principal) | CPT/HCPCS: 81000; 87086 ==

== ENCOUNTER 2024-09-21 16:23 | Outpatient (CLI) | payer MEDICARE, SELFPAY ==
--- NOTE | 2024-09-21 16:30 | USCV_ITS ---
NobleangelaTonio Age: 58 Gender: M : 1965 Exam Date: 09/21/2024 16:48 Ordering Phys: Giovana Liu MD ([email or web address]) Technologist: MARKO [place] [facility] [place]: TIA Risk Factors: Previous Vascular Surgery: Right Brachial BP: / Left Brachial BP: / Right Left Velocity (cm/s) Spectral Plaque Velocity (cm/s) Spectral Plaque Syst/Diast Broadening Syst/Diast Broadening 103.10/22.80 Prox CCA 109.80/ 32.60 95.40/ 24.10 Mid CCA 86.80 / 28.60 91.50/ 25.40 Distal CCA 107.40/ 34.70 88.80/ 22.50 Prox ICA 56.30 / 26.40 70.70/ 25.50 Mid ICA 56.90 / 24.30 48.30/ 22.70 Distal ICA 56.10 / 27.00 100.50 ECA 113.80 1.00 ICA/CCA 0.50 Antegrade Vertebral Antegrade 41.80/ 13.90 cm/s 48.10/ 18.00 cm/s Tri Subclavian Tri 84.90 158.0 0 CONCLUSIONS Right ICA stenosis <50%. Mild atheromatous plaque right carotid bulb/ICA. Left ICA stenosis <50%. Mild atheromatous plaque left carotid bulb/ICA. Intimal thickening in the common carotid arteries and internal carotid arteries bilaterally. Normal antegrade Doppler flow noted in the right vertebral artery. Normal antegrade Doppler flow noted in the left vertebral artery. Bethel Woodson MD (Electronically Signed) Final Date: 22 September 2024 10:09 S
== END 2024-09-21 16:24 | disposition home or self-care (01) ==
PROVIDERS: PCP Family Medicine; Visit Provider Internal Medicine Cardiovascular Disease
DX: I65.23 Occlusion and stenosis of bilateral carotid arteries (principal)
CPT/HCPCS: 93880

== ENCOUNTER → 2024-09-26 09:00 | Outpatient (BNVA) | payer MEDICARE, SELFPAY | PROVIDERS: PCP Family Medicine; Visit Provider Nurse Practitioner Family | DX: M54.41 Lumbago with sciatica, right side (principal); G89.29 Other chronic pain | CPT/HCPCS: 99214 ==

== ENCOUNTER 2024-10-06 06:56 | Day surgery (SDC) | payer MEDICARE, SELFPAY ==
--- NOTE | 2024-10-06 06:47 | ANES.PREANE2 ---
Pre-Anesthetic Assessment Height/Weight: Height 5 ft 11 in Preop Diagnosis: Concern for intra-atrial shunt Operation Date: 10/06/24 08:00 Proposed Procedures p ANTHONY(Not Applicable) - Giovana Liu MD Was Beta Lety taken within 24 hours: N/A Was Clonidine taken within 24 hours: N/A Social No alcohol and No tobacco Exam alert, oriented x 3, clear to auscultation bilaterally and regular rate & rhythm Airway Submandibular: within normal limits Cervical ROM: within normal limits Mallampati: Class II Dentition: full Anesthetic Plan ASA status: 3 Anesthesia: MAC Other: No prior issues with anesthesia NPO since yesterday evening Prior CVA in April, right sided weakness. On chronic Eliquis. Last taken yesterday SHRUTI on CPAP GERD on Protonix Labs 09/13/2024 acceptable for procedure Recent echo showing EF of 60% with a positive bubble study suggestive of intracardiac intra atrial shunt. ANTHONY today to further evaluate Plan for MAC anesthesia Medications/Allergies Home Medications ?Medication ?Instructions ?Recorded ?Confirmed ?Last Taken ?Type Bipap machine and mask 01/23 #1 ea 01/19/24 10/03/24 10/03/24 Rx apixaban 5 mg tablet (Eliquis) 5 mg PO BID #60 tabs 01/19/24 10/03/24 10/05/24 Rx montelukast 10 mg tablet 10 mg PO DAILY #30 tabs 01/19/24 10/03/24 10/05/24 Rx (Singulair) tamsulosin 0.4 mg capsule 0.4 mg PO DAILY #30 caps 01/19/24 10/03/24 10/05/24 Rx sertraline 100 mg tablet (Zoloft) 100 mg PO DAILY #30 tabs 02/10/24 10/03/24 10/05/24 Rx acetaminophen 500 mg tablet 1,000 mg PO Q6H PRN Pain 03/19/24 10/06/24 10/05/24 History [id number] 32 mg-folic acid 1 See Rx Instructions .Route .COMPLEX 03/19/24 10/03/24 10/03/24 History mg-dha 315 mg-Lactobac casei capsule (Multi Pro) trazodone 100 mg tablet 300 mg (3 x 100 mg) PO .HS PRN 07/15/24 10/03/24 10/05/24 Rx insomnia #90 tabs pantoprazole 40 mg tablet,delayed 40 mg PO DAILY #30 tabs 07/19/24 10/03/24 10/05/24 Rx release (Protonix) testosterone cypionate 200 mg/mL 300 mg (1.5 mL) SUBCUT .Q 14 Days 08/19/24 10/03/24 09/18/24 Rx intramuscular oil #4 mL topiramate 25 mg tablet (Topamax) 25 mg PO BID PRN nerve pain #60 09/26/24 10/03/24 10/05/24 Rx tabs Allergies Allergy/AdvReac Type Severity Reaction Status Date / Time No Known Allergies Allergy Verified 09/26/24 09:05 [facility] Anesthesia Medical History Insomnia PTSD (post-traumatic stress disorder) GERD (gastroesophageal reflux disease) Allergic rhinitis PFO (patent foramen ovale) SHRUTI treated with BiPAP ASD (atrial septal defect) Psychiatric care Chronic back pain History of embolic stroke Surgical History H/O gastric bypass In 04/2021 in [facility]. H/O shoulder surgery R. shoulder surgery due to bone spurs H/O wrist surgery due to R. wrist fracture at work. Surgery occurred around Jan or Feb 2016 Family History Sister Brain tumor Brother Brain tumor Mother Heart disease Grandmother Heart disease Father Throat cancer Social History Smoking and tobacco/nicotine status: never used tobacco/nicotine Quit status (tobacco/nicotine): has quit using Year quit tobacco: 06/2024 Former quit date comment: Smoked pipes only for 2 years. Alcohol intake: current Alcohol intake frequency: holidays/special occasions only Substance/Drug Use: never Data Anesthesia Cardiac Studies: Echocardiogram 09/12/24 Cardiac Event Monitor 08/30/24
[2024-10-06 07:35] VITALS: BP 108/64; PULSE 65; RESP 16; TEMP 36.2; O2SAT 96
--- NOTE | 2024-10-06 07:36 | USCV_ITS ---
Tonio Valderrama Age: 58 Gender: M : 1965 Exam Date: 10/06/2024 08:11 Ordering Phys: Giovana Liu MD ([email or web address]) Technologist: Exam Location: [facility] – [place] Indication: pfo BP: / HR: Rhythm: Sinus Technical Quality: Good MEASUREMENTS (Male / Female) Normal Values Medications IV propofol administered by the anesthesia service Complications None Proc. Components The patient was brought to the ANTHONY examination room in a fasting state after obtaining an informed consent. The ANTHONY probe was passed into the posterior pharynx , mid-esophagus, distal esophagus, and gastric fundus. ANTHONY was performed at multiple levels. FINDINGS Left Ventricle Normal left ventricular size and systolic function, EF 60%. Right Ventricle Normal right ventricular size and systolic function. Right Atrium Normal right atrial size. Left Atrium Appears to be of normal size LA Appendage Normal size and contractility IA Septum Elongated slitlike opening measuring 13 mm long and 3.3 millimeter wide. Greater than 30 bubbles were found to be crossing from right to left. Mitral Valve Minimal thickening in the anterior mitral leaflet Aortic Valve Thickened aortic valve. Trileaflet Tricuspid Valve Structurally normal tricuspid valve. Pulmonic Valve No gross abnormalities noted Pericardium No pericardial effusion. Aorta Intimal thickening with a minimal plaque. No aneurysm or dissection CONCLUSIONS Patent foramen ovale with a large [id number] shunt Minimal thickening in the anterior mitral leaflet. Thickened aortic valve. Trileaflet. Normal left atrial appendage and contractility Normal LV size ejection fraction No intracardiac masses Dr Giovana Liu MD [facility] (Electronically Signed) Final Date: 07 October 2024 11:25 S
[2024-10-06 07:38] VITALS: BMI 27.6
[2024-10-06] MEDS: sodium chloride 0.9% 1,000 ML 15 ML IV (08:00)
--- NOTE | 2024-10-06 08:05 | PM.HP ---
Providers/Chief Complaint Primary Care Provider: Yossi Cartwright MD Chief Complaint: Q21.12 History of Present Illness Tonio Valderrama is a 58 year old male has a history of recurrent CVA and passing out spells. He had an event monitor which did not reveal any significant arrhythmias to explain the passing out spells. He also has a history of PFO. A ANTHONY was recommended to further evaluate his p.o. for and any cardiac source of embolization. Patient denies any chest pain or chest tightness. No unusual shortness of breath. No fever or chills. No cough. He has no history of any dysphagia. No history of any upper GI bleed in the recent past. Review of Systems Narrative: CONSTITUTIONAL: No fever or chills. EYES: No blurring of vision or other visual disturbances lately. ENT: No hoarseness of voice, auditory disturbances or sore throat. CARDIOVASCULAR: As mentioned above. RESPIRATORY: No significant cough. GASTROINTESTINAL: No hematemesis or melena. GENITOURINARY: No dysuria or hematuria. INTEGUMENTARY: No skin rashes or history of skin cancer. NEURO: No transient ischemic attacks or amaurosis. PSYCHIATRIC: No history of psychosis or major depression. HEMATOLOGIC: No bleeding disorders or significant anemia. ENDOCRINE: No history of polyuria or polydipsia. MUSCULOSKELETAL: No recent joint pain or swelling. ALLERGY/IMMUNOLOGY: As mentioned above. Medications/Allergies Home Medications ?Medication ?Instructions ?Recorded ?Confirmed ?Last Taken ?Type Bipap machine and mask 01/23 #1 ea 01/19/24 10/03/24 10/03/24 Rx apixaban 5 mg tablet (Eliquis) 5 mg PO BID #60 tabs 01/19/24 10/03/24 10/05/24 Rx montelukast 10 mg tablet 10 mg PO DAILY #30 tabs 01/19/24 10/03/24 10/05/24 Rx (Singulair) tamsulosin 0.4 mg capsule 0.4 mg PO DAILY #30 caps 01/19/24 10/03/24 10/05/24 Rx sertraline 100 mg tablet (Zoloft) 100 mg PO DAILY #30 tabs 02/10/24 10/03/24 10/05/24 Rx acetaminophen 500 mg tablet 1,000 mg PO Q6H PRN Pain 03/19/24 10/06/24 10/05/24 History [id number] 32 mg-folic acid 1 See Rx Instructions .Route .COMPLEX 03/19/24 10/03/24 10/03/24 History mg-dha 315 mg-Lactobac casei capsule (Multi Pro) trazodone 100 mg tablet 300 mg (3 x 100 mg) PO .HS PRN 07/15/24 10/03/24 10/05/24 Rx insomnia #90 tabs pantoprazole 40 mg tablet,delayed 40 mg PO DAILY #30 tabs 07/19/24 10/03/24 10/05/24 Rx release (Protonix) testosterone cypionate 200 mg/mL 300 mg (1.5 mL) SUBCUT .Q 14 Days 08/19/24 10/03/24 09/18/24 Rx intramuscular oil #4 mL topiramate 25 mg tablet (Topamax) 25 mg PO BID PRN nerve pain #60 09/26/24 10/03/24 10/05/24 Rx tabs Allergies Allergy/AdvReac Type Severity Reaction Status Date / Time No Known Allergies Allergy Verified 09/26/24 09:05 PFSH Acute PFSH: Medical History (Updated 10/06/24 @ 08:08 by Giovana Liu MD) PFO (patent foramen ovale) Insomnia PTSD (post-traumatic stress disorder) GERD (gastroesophageal reflux disease) Allergic rhinitis SHRUTI treated with BiPAP ASD (atrial septal defect) Psychiatric care Chronic back pain History of embolic stroke Surgical History H/O gastric bypass In 04/2021 in [facility]. H/O shoulder surgery R. shoulder surgery due to bone spurs H/O wrist surgery due to R. wrist fracture at work. Surgery occurred around Jan or Feb 2016 Family History Sister Brain tumor Brother Brain tumor Mother Heart disease Grandmother Heart disease Father Throat cancer Social History Smoking and tobacco/nicotine status: never used tobacco/nicotine Quit status (tobacco/nicotine): has quit using Year quit tobacco: 06/2024 Former quit date comment: Smoked pipes only for 2 years. Alcohol intake: current Alcohol intake frequency: holidays/special occasions only Substance/Drug Use: never Vitals/I&O/Wt Last Vital Signs Temp 97.2 F L 10/06/24 07:35 Pulse 65 10/06/24 07:35 Resp 16 10/06/24 07:35 BP 108/64 10/06/24 07:35 Pulse Ox 96 10/06/24 07:35 O2 Del Method Room Air 10/06/24 07:35 Weight last 48 hrs Weight 198 lb Physical Exam Narrative: GENERAL: The patient is alert and oriented times three. Not in any acute distress. HEENT: No significant pallor, icterus or lymphadenopathy.Oral cavity: There are no mucous membrane lesions. NECK: Trachea appears to be central. No masses noted. No JVD or thyromegaly appreciated. RESPIRATORY: Chest is symmetrical. No intercostals muscle retraction or any accessory muscle activation. There is no chest wall tenderness. Breath sounds are heard bilaterally. No rales or rhonchi heard. No evidence of any consolidation. BREASTS: Deferred. HEART: The heart sounds are normal. No S3 or S4. No significant murmurs. No pericardial rub ABDOMEN: No vessel pulsations or distention. No tenderness. No organomegaly appreciated. Bowel sounds are normally heard. : Deferred. RECTAL: Deferred. LYMPHATIC: No lymphadenopathy noted in the neck. EXTREMITIES: No edema or cyanosis. No clubbing. MUSCULOSKELETAL: No acute joint deformities or swelling SKIN: There are no significant rashes or ecchymosis NEUROPSYCHIATRIC: The patient is alert and oriented x3. Appears to be in a good mood. No tremors or rigidity noted. A&P Assessment and plan (1) PFO (patent foramen ovale): For further evaluation, ANTHONY would be appropriate. (2) Recurrent cerebrovascular accidents (CVAs): No recurrence of CVA since the last visit (3) Recurrent syncope: (4) Generalized anxiety disorder: (5) SHRUTI on CPAP: Patient is known to have obstructive sleep apnea. Patient is on CPAP. Importance of compliance with this treatment was discussed. The cardiovascular implications also were discussed. Advised to continue on the current treatment measures. Plan Patient requires a ANTHONY to further evaluate the PFO and rule out any cardiac source of embolization. The risks and benefits of the procedure were discussed with the patient. The risk of aspiration, bleeding, soft tissue injury, perforation of the stomach/esophagus and other concomitant complications were explained to the patient in detail. The patient understood this well and consented to proceed Patient is scheduled for the ANTHONY today. Based on the results, further recommendations will be made. PDMP PDMP Reviewed: Not Reviewed Attestations Medical Necessity Statement*: Possible discharge home after the procedure Coding Level of Care Code 02418 Diagnoses PFO (patent foramen ovale) Q21.12 Recurrent cerebrovascular accidents (CVAs) I63.9 Recurrent syncope R55 Generalized anxiety disorder F41.1 SHRUTI on CPAP G47.33
--- NOTE | 2024-10-06 08:10 | W.PM.OPSUD ---
Surgery/Procedure H&P Update DATE OF PROCEDURE: October 06, 2024 DATE H&P PERFORMED: 10/06/24 H&P UPDATE INFORMATION: I have reviewed H&P completed within last 30 days, I have examined patient prior to procedure and No changes to prior documentation PREOP DIAGNOSIS: Concern for intra-atrial shunt/patent foramen ovale PRIMARY INDICATION FOR PROCEDURE: Patient is recurrent CVA, recurrent syncope, history of PFO PLANNED PROCEDURE: Operation Date: 10/06/24 08:00 Proposed Procedures p ANTHONY(Not Applicable) - Giovana Liu MD
--- NOTE | 2024-10-06 08:44 | PM.OP ---
Operative Report Date of procedure: October 06, 2024 Surgeon: Giovana Liu MD Procedure: Testing testing
--- NOTE | 2024-10-06 08:47 | PM.OP ---
Operative Report Date of procedure: October 06, 2024 Surgeon: Giovana Liu MD Procedure: Patient had the ANTHONY under IV sedation, administered by anesthesia service. He was found to have a large PFO. Trace to mild MR. Thickened aortic valve. Plan: Referral to consider surgical closure of the PFO
[2024-10-06 08:51] VITALS: BP 101/48; PULSE 67; RESP 16; TEMP 36.4; O2SAT 94
[2024-10-06 09:25] VITALS: BP 101/65; PULSE 68; RESP 16; O2SAT 95
--- NOTE | 2024-10-06 09:44 | ANE.PACU2 ---
Inpatient post-anesthesia follow up: Airway intact: Yes Vital signs: Temperature 97.5 F Pulse Rate 68 Respiratory Rate 16 Blood Pressure 101/65 Pulse Oximetry 95 Oxygen Delivery Me thod Room Air Oxygen Flow Rate Fraction of Inspir ed Oxygen Hydration adequate: Yes Nausea and vomiting: No Pain level: 1 Mental status: Baseline
== END 2024-10-06 09:44 | disposition home or self-care (01) ==
PROVIDERS: PCP Family Medicine; Visit Provider Internal Medicine Cardiovascular Disease
PROC: (CPT 93312; principal; 2024-10-06 08:00)
DX: Q21.12 Patent foramen ovale (principal); G47.33 Obstructive sleep apnea (adult) (pediatric); K21.9 Gastro-esophageal reflux disease without esophagitis; R55 Syncope and collapse; I34.0 Nonrheumatic mitral (valve) insufficiency; F41.1 Generalized anxiety disorder; Z86.73 Personal history of transient ischemic attack (TIA), and cerebral infarction without residual deficits; Z79.01 Long term (current) use of anticoagulants; Z79.899 Other long term (current) drug therapy; Z79.890 Hormone replacement therapy; Z98.84 Bariatric surgery status; Z87.891 Personal history of nicotine dependence; Z82.49 Family history of ischemic heart disease and other diseases of the circulatory system
CPT/HCPCS: 93312; 93320; 93325; J2405; J2704; J7030; J9999

== ENCOUNTER → 2024-10-07 08:02 | Outpatient (BNVA) | payer MEDICARE, SELFPAY | PROVIDERS: PCP Family Medicine; Visit Provider Nurse Practitioner Family | DX: M79.18 Myalgia, other site (principal); M54.41 Lumbago with sciatica, right side; G89.29 Other chronic pain | CPT/HCPCS: 20553; 99214; J1010; J3490 ==

== ENCOUNTER → 2024-10-31 09:11 | Outpatient (BNVA) | payer MEDICARE, SELFPAY | PROVIDERS: PCP Family Medicine; Visit Provider Nurse Practitioner Family | DX: M54.41 Lumbago with sciatica, right side (principal); G89.29 Other chronic pain | CPT/HCPCS: 99214 ==

== ENCOUNTER → 2024-11-24 16:06 | Outpatient (BNVA) | payer OTHER, SELFPAY | PROVIDERS: PCP Family Medicine; Visit Provider Internal Medicine Cardiovascular Disease | DX: R07.9 Chest pain, unspecified (principal); Z79.01 Long term (current) use of anticoagulants | CPT/HCPCS: 36415; 85025; 93005 ==

== ENCOUNTER 2024-12-23 07:11 | Outpatient (CLI) | payer OTHER, SELFPAY ==
--- NOTE | 2024-12-23 07:15 | USCV_ITS ---
Tonio Valderrama Age: 59 Gender: M : 1965 Exam Date: 12/23/2024 07:26 Ordering Phys: Giovana Liu MD ([email or web address]) Technologist: CLAIRE Exam Location: [facility] [place] Indication: Cp/PFO Closure BP: 120 / 76 HR: Rhythm: Sinus Technical Quality: Adequate MEASUREMENTS (Male / Female) Normal Values 2D ECHO LV Diastolic Diameter PLAX 4.2 cm 4.2 - 5.9 / 3.9 - 5.3 cm IVS Diastolic Thickness 1.1 cm 0.6 - 1.0 / 0.6 - 0.9 cm IVS Systolic Thickness 1.7 cm LVPW Diastolic Thickness 1.5 cm 0.6 - 1.0 / 0.6 - 0.9 cm LVPW Systolic Thickness 1.8 cm LVOT Diameter 2.0 cm LV Ejection Fraction 2D Teich 63.5 % LV Ejection Fraction MOD 4C 66.7 % LV Ejection Fraction MOD 2C 72.2 % LV Ejection Fraction 2C AL 74.1 % LA Diameter 3.5 cm RA Systolic Volume 4C AL 42.6 ml RA Systolic Volume 4C MOD 40.6 ml LA Sys Volume AL 30.6 cm cubed LA Sys Volume Index AL 14.5 cm cubed/m squared Aorta at Sinotubular Diameter 2.4 cm IVC Diameter 1.8 cm M-MODE LA Ao Ratio MM 1.3 AV Cusp Separation MM 1.5 cm FINDINGS Left Ventricle Right Ventricle Right Atrium Left Atrium Mitral Valve Aortic Valve Tricuspid Valve Pulmonic Valve Pericardium Aorta IVC CONCLUSIONS LV systolic function is normal with EF of 60-65%. No regional wall motion abnormalities. RV appears dilated. RV function is normal Venkat Arellano MD (Electronically Signed) Final Date: 01 January 2025 10:34 S
== END 2024-12-23 07:12 | disposition home or self-care (01) ==
LOC: RAD 07:12
PROVIDERS: PCP Family Medicine; Visit Provider Internal Medicine Cardiovascular Disease
DX: I42.9 Cardiomyopathy, unspecified (principal); R93.1 Abnormal findings on diagnostic imaging of heart and coronary circulation
CPT/HCPCS: 93308

== ENCOUNTER → 2025-01-18 09:39 | Outpatient (BNVA) | payer MEDICARE, SELFPAY | PROVIDERS: PCP Family Medicine; Visit Provider Family Medicine | DX: Q21.12 Patent foramen ovale (principal); Q21.10 Atrial septal defect, unspecified; G47.33 Obstructive sleep apnea (adult) (pediatric); I63.89 Other cerebral infarction; N40.0 Benign prostatic hyperplasia without lower urinary tract symptoms | CPT/HCPCS: 80053; 80061; 84153; 84403; 85025 ==

== ENCOUNTER 2025-02-01 08:13 | Outpatient (CLI) | payer MEDICARE, SELFPAY ==
--- NOTE | 2025-02-01 08:30 | USCV_ITS ---
Tonio Valderrama Age: 59 Gender: M : 1965 Exam Date: 02/01/2025 08:42 Ordering Phys: Giovana Liu MD ([email or web address]) Technologist: [place] [facility] [place]ication: asd repair BP: 110 / 65 HR: 68 Rhythm: Sinus Technical Quality: Adequate MEASUREMENTS (Male / Female) Normal Values 2D ECHO LV Diastolic Diameter PLAX 3.7 cm 4.2 - 5.9 / 3.9 - 5.3 cm IVS Diastolic Thickness 1.2 cm 0.6 - 1.0 / 0.6 - 0.9 cm IVS Systolic Thickness 1.7 cm LVPW Diastolic Thickness 1.6 cm 0.6 - 1.0 / 0.6 - 0.9 cm LVPW Systolic Thickness 2.3 cm LVOT Diameter 2.0 cm LV Ejection Fraction 2D Teich 65.4 % LA Diameter 4.0 cm RA Systolic Volume 4C AL 77.8 ml RA Systolic Volume 4C MOD 65.2 ml LA Sys Volume AL 53.9 cm cubed LA Sys Volume Index AL 25.2 cm cubed/m squared Aorta at Sinotubular Diameter 3.1 cm IVC Diameter 2.0 cm DOPPLER AV Peak Velocity 132.0 cm/s LVOT Peak Velocity 98.0 cm/s AV Area Cont Eq vti 3.2 cm squared AV Area Cont Eq pk 2.4 cm squared MV Area PHT 3.9 cm squared Mitral E to A Ratio 0.8 TV Peak Velocity 198.0 cm/s TR Peak Velocity 202.0 cm/s TR Peak Gradient 16.3 mmHg TV Peak E Velocity 65.0 cm/s PV Peak Velocity 130.0 cm/s FINDINGS Left Ventricle Normal LV size and ejection fraction of 65%.no regional wall motion abnormalities. Right Ventricle Mildly dilated with normal ejection fraction Right Atrium Mildly dilated Left Atrium Normal left atrial size. IA Septum Saline contrast injection revealed no evidence of [id number] shunt Mitral Valve Trace mitral valve regurgitation. Aortic Valve Thickened aortic valve. Tricuspid Valve Trace tricuspid valve regurgitation. Pulmonic Valve Pulmonic valve not well visualized. Pericardium No pericardial effusion. Aorta Normal aortic annulus size. IVC Normal inferior vena cava. CONCLUSIONS Intact interatrial septum with no evidence of any right to left shunt Normal LV size and ejection fraction of 65%.no regional wall motion abnormalities. Mildly dilated right atrium and right ventricle Thickened aortic valve. Trace mitral valve regurgitation. Trace tricuspid valve regurgitation. Estimated pulmonary artery peak systolic pressure possibly within normal limits There is no pericardial effusion. There are no intracardiac masses. Dr Giovana Liu MD [facility] (Electronically Signed) Final Date: 08 February 2025 20:39 S
== END 2025-02-01 08:14 | disposition home or self-care (01) ==
LOC: RAD 08:18
PROVIDERS: PCP Family Medicine; Visit Provider Internal Medicine Cardiovascular Disease
DX: Q21.12 Patent foramen ovale (principal); R55 Syncope and collapse; I35.9 Nonrheumatic aortic valve disorder, unspecified
CPT/HCPCS: C8929

== ENCOUNTER → 2025-02-08 13:42 | Outpatient (BNVA) | payer MEDICARE, SELFPAY | PROVIDERS: PCP Family Medicine; Visit Provider Nurse Practitioner Family | DX: M79.18 Myalgia, other site (principal); M54.41 Lumbago with sciatica, right side; G89.29 Other chronic pain | CPT/HCPCS: 20553; 99214; J1010; J3490 ==

== ENCOUNTER → 2025-03-22 09:48 | Outpatient (BNVA) | payer MEDICARE, SELFPAY | PROVIDERS: PCP Family Medicine; Visit Provider Nurse Practitioner Family | DX: M54.41 Lumbago with sciatica, right side (principal); G89.29 Other chronic pain | CPT/HCPCS: 99214 ==

== ENCOUNTER → 2025-03-27 09:29 | Outpatient (BNVA) | payer MEDICARE, SELFPAY | PROVIDERS: PCP Family Medicine; Visit Provider Nurse Practitioner Family | DX: Z87.74 Personal history of (corrected) congenital malformations of heart and circulatory system (principal) | CPT/HCPCS: 99214 ==